=== PATIENT | male | born 1945 | race African-American/Black ===

== ENCOUNTER 2016-09-01 07:18 | Emergency (ER) | payer OTHER ==
[2016-09-01 07:35] VITALS: BMI 30.1
--- NOTE | 2016-09-01 07:50 | PDOC ---
History of Present Illness - General History Source: Patient, Old Records Exam Limitations: No Limitations - History of Present Illness Initial Comments: 09/01/16 08:03 The patient is a 70 year old male, with a significant past medical history of CVA, diabetes, HTN and HLD, who presents to the emergency department with hematuria and difficulty urinating since last night. He notes that his physician recently started him on Finasteride. He denies any kind of pain. He reports that this has happened to him in the past for which he needed a catheter placed to help him urinate. He states that he takes a daily baby aspirin. The patient denies chest pain, shortness of breath, headache and dizziness. Denies fever, chills, nausea, vomit, diarrhea and constipation. Denies dysuria and frequency. Allergies: None Past surgical history: None reported Social history: No alcohol, tobacco or drug use reported PMD - Dr. Jennifer Reed <Merrill Sal - Last Filed: 09/01/16 08:53> <Karo Martínez - Last Filed: 09/01/16 14:42> - General Chief Complaint: Hematuria Stated Complaint: hematuria Time Seen by Provider: 09/01/16 07:48 Past History <Merrill Sal - Last Filed: 09/01/16 08:53> - Past Medical History Diabetes: Yes HTN: Yes Hypercholesterolemia: Yes Suicide Attempt (Hx): No - Immunization History Td Vaccination: No - Psycho/Social/Smoking Cessation Hx Anxiety: No Suicidal Ideation: No Smoking Status: No Smoking History: Former smoker Have you smoked in the past 12 months: No Number of Cigarettes Smoked Daily: 0 If you are a former smoker, when did you quit?: 30 YRS AGO Information on smoking cessation initiated: No Hx Alcohol Use: No Drug/Substance Use Hx: No Substance Use Type: None <Karo Martínez - Last Filed: 09/01/16 14:42> - Past Medical History Allergies/Adverse Reactions: Allergies Allergy/AdvReac Type Severity Reaction Status Date / Time No Known Allergies Allergy Verified 09/01/16 07:30 Home Medications: Ambulatory Orders Atorvastatin Ca [Lipitor] 80 mg PO DAILY 12/05/12 Valsartan [Diovan] 80 mg PO DAILY 12/05/12 Aspirin [ASA -] 81 mg PO DAILY 10/30/15 Finasteride [Proscar -] 5 mg PO DAILY 09/01/16 Insulin (Levemir) [Levemir Flexpen -] 15 units SQ HS 09/01/16 Insulin Aspart [Novolog] 0 unit SQ TID 09/01/16 Tamsulosin HCl [Flomax] 0.4 mg PO DAILY 09/01/16 Review of Systems - Review of Systems Able to Perform ROS?: Yes Comments:: 09/01/16 08:04 GENERAL/CONSTITUTIONAL: No fever or chills. No weakness. HEAD, EYES, EARS, NOSE AND THROAT: No change in vision. No ear pain or discharge. No sore throat. CARDIOVASCULAR: No chest pain or shortness of breath RESPIRATORY: No cough, wheezing, or hemoptysis. GASTROINTESTINAL: No nausea, vomiting, diarrhea or constipation. GENITOURINARY: +Hematuria and Difficulty urinating. No dysuria, frequency MUSCULOSKELETAL: No joint or muscle swelling or pain. No neck or back pain. SKIN: No rash NEUROLOGIC: No headache, vertigo, loss of consciousness, or change in strength/ sensation. ENDOCRINE: No increased thirst. No abnormal weight change HEMATOLOGIC/LYMPHATIC: No anemia, easy bleeding, or history of blood clots. ALLERGIC/IMMUNOLOGIC: No hives or skin allergy. <Merrill Sal - Last Filed: 09/01/16 08:53> *Physical Exam - Vital Signs Last Vital Signs Temp Pulse Resp BP Pulse Ox 97.7 F 96 H 19 166/74 98 09/01/16 07:30 09/01/16 07:30 09/01/16 07:30 09/01/16 07:30 09/01/16 07:30 - Physical Exam Comments: 09/01/16 08:04 GENERAL: Awake, alert, and fully oriented, in no acute distress HEAD: No signs of trauma, normocephalic, atraumatic EYES: PERRLA, EOMI, sclera anicteric, conjunctiva clear ENT: Auricles normal inspection, hearing grossly normal, nares patent, oropharynx clear without exudates. Moist mucosa NECK: Normal ROM, supple, no lymphadenopathy, JVD, or masses LUNGS: No distress, speaks full sentences, clear to auscultation bilaterally HEART: Regular rate and rhythm, normal S1 and S2, no murmurs, rubs or gallops, peripheral pulses normal and equal bilaterally. ABDOMEN: Soft, nontender, normoactive bowel sounds. No guarding, no rebound. + Bladder distention. EXTREMITIES: Normal inspection, Normal range of motion, no edema. No clubbing or cyanosis. NEUROLOGICAL: Cranial nerves II through XII grossly intact. Normal speech, normal gait, no focal sensorimotor deficits SKIN: Warm, Dry, normal turgor, no rashes or lesions noted. <Merrill Sal - Last Filed: 09/01/16 08:53> - Vital Signs Last Vital Signs Temp Pulse Resp BP Pulse Ox 97.7 F 96 H 19 166/74 98 09/01/16 07:30 09/01/16 07:30 09/01/16 07:30 09/01/16 07:30 09/01/16 07:30 <Karo Martínez - Last Filed: 09/01/16 14:42> Medical Decision Making - Medical Decision Making Pt with approximately 400cc dark red urine in the pruett bag. Endorses relief of symptoms. He does not have a urologist, and was just started on proscar. Will place leg bag and refer to urology outpatient. <Karo Martínez - Last Filed: 09/01/16 14:42> *DC/Admit/Observation/Transfer - Attestations Scribe Attestion: 09/01/16 08:05 Documentation prepared by Merrill Sal, acting as medical coding specialist for Karo Martínez MD. <Merrill Sal - Last Filed: 09/01/16 08:53> - Discharge Dispostion Admit: No <Karo Martínez - Last Filed: 09/01/16 14:42> Diagnosis at time of Disposition: Urinary retention - Discharge Dispostion Disposition: HOME Condition at time of disposition: Stable - Referrals Referrals: Jennifer Reed MD [Primary Care Provider] - Javed Gross MD [Staff Physician] - - Patient Instructions Printed Discharge Instructions: DI for Hematuria
[2016-09-01 09:03] LABS: URINE APPEARANCE SLCLOUDY; URINE BILIRUBIN NEGATIVE (NEGATIVE); URINE COLOR RED; URINE GLUCOSE (UA) 1+ (NEGATIVE); URINE KETONE NEGATIVE (NEGATIVE); URINE LEUK ESTERASE NEGATIVE (NEGATIVE); URINE NITRITE NEGATIVE (NEGATIVE); URINE UROBILINOGEN NEGATIVE E.U./dl (0.2-1.0)
[2016-09-01 09:11] LABS: URINE BLOOD 2+ (NEGATIVE); URINE PROTEIN 2+ (NEGATIVE)
[2016-09-01 09:17] LABS: URINE RBC 5434 /hpf (0-3)
[2016-09-01 11:23] VITALS: BP 157/86; PULSE 87; TEMP 98
== END 2016-09-01 11:23 | disposition home or self-care (01) ==
LOC: JER 07:18
PROC: 0T9B70Z Drainage of Bladder with Drainage Device, Via Natural or Artificial Opening (ICD-10-PCS; principal; 2016-09-01)
DX: R33.8 Other retention of urine (principal); I10 Essential (primary) hypertension; E11.9 Type 2 diabetes mellitus without complications; Z79.4 Long term (current) use of insulin; E78.00 Pure hypercholesterolemia, unspecified; Z86.73 Personal history of transient ischemic attack (TIA), and cerebral infarction without residual deficits; Z87.891 Personal history of nicotine dependence
CPT/HCPCS: 51702; 81003; 81015; 87086; 99284-25

== ENCOUNTER 2016-09-06 23:37 | Emergency (ER) | payer OTHER ==
[2016-09-06 23:47] VITALS: TEMP 97.7; BMI 28.1
--- NOTE | 2016-09-07 01:31 | PDOC ---
History of Present Illness <LucaMarthacarrillo Kruger - Last Filed: 09/07/16 01:53> - General History Source: Patient, Old Records Exam Limitations: No Limitations - History of Present Illness Initial Comments: 09/07/16 01:53 The patient is a 70 year old male with a significant past medical history of CVA , diabetes, HTN and HLD, who presents to the emergency department today for further evaluation of pruett catheter complications since yesterday. The patient reports that last week he presented to this ER and was discharged with a pruett catheter. The patient reported that his urine bag is not filling up but that his bladder feels full. The patient notes that he has had some leakage when urinating that may be the reason the urine bag is not filling up. The patient denies fever, chills, and sweats. The patient denies nausea, vomiting, and diarrhea. The patient denies chest pain, cough, and shortness of breath. . <Kendall Underwood - Last Filed: 09/07/16 01:56> - General Chief Complaint: Urinary Catheter Problem Stated Complaint: URINARY CATHETER PROBLEM Time Seen by Provider: 09/07/16 00:05 Past History - Past Medical History Diabetes: Yes HTN: Yes Hypercholesterolemia: Yes Suicide Attempt (Hx): No Other medical history: kidney - Immunization History Td Vaccination: No - Psycho/Social/Smoking Cessation Hx Anxiety: No Suicidal Ideation: No Smoking Status: No Smoking History: Never smoked Have you smoked in the past 12 months: No Number of Cigarettes Smoked Daily: 0 If you are a former smoker, when did you quit?: 30 YRS AGO Information on smoking cessation initiated: No Hx Alcohol Use: No Drug/Substance Use Hx: No Substance Use Type: None <Martha Segovia - Last Filed: 09/07/16 01:53> <Kendall Underwood - Last Filed: 09/07/16 01:56> - Past Medical History Allergies/Adverse Reactions: Allergies Allergy/AdvReac Type Severity Reaction Status Date / Time No Known Allergies Allergy Verified 09/06/16 23:44 Home Medications: Ambulatory Orders Atorvastatin Ca [Lipitor] 80 mg PO DAILY 12/05/12 Valsartan [Diovan] 80 mg PO DAILY 12/05/12 Aspirin [ASA -] 81 mg PO DAILY 10/30/15 Finasteride [Proscar -] 5 mg PO DAILY 09/01/16 Insulin (Levemir) [Levemir Flexpen -] 15 units SQ HS 09/01/16 Insulin Aspart [Novolog] 0 unit SQ TID 09/01/16 Tamsulosin HCl [Flomax] 0.4 mg PO DAILY 09/01/16 Review of Systems - Review of Systems Able to Perform ROS?: Yes Comments:: 09/07/16 01:54 CONSTITUTIONAL: Absent: fever, no chills, no fatigue EYES: Absent: visual changes ENT: Absent: ear pain, no sore throat CARDIOVASCULAR: Absent: chest pain, no palpitations RESPIRATORY: Absent: cough, no SOB GI: Absent: abdominal pain, no nausea, no vomiting, no constipation, no diarrhea GENITOURINARY: Present: Dysuria Absent: no frequency, no hematuria MUSCULOSKELETAL: Absent: back pain, no arthralgia, no myalgia SKIN: Absent: rash NEURO: Absent: headache <Kendall Underwood - Last Filed: 09/07/16 01:56> *Physical Exam - Vital Signs Last Vital Signs Temp Pulse Resp BP Pulse Ox 97.7 F 92 H 14 167/70 99 09/06/16 23:44 09/06/16 23:44 09/06/16 23:44 09/06/16 23:44 09/06/16 23:44 <Martha Segovia - Last Filed: 09/07/16 01:53> - Vital Signs Last Vital Signs Temp Pulse Resp BP Pulse Ox 97.7 F 92 H 14 167/70 99 09/06/16 23:44 09/06/16 23:44 09/06/16 23:44 09/06/16 23:44 09/06/16 23:44 - Physical Exam Comments: 09/07/16 01:54 GENERAL: Well-appearing, well-nourished. No apparent distress. HEENT: Normocephalic, atraumatic. PERRL, EOM intact. CARDIOVASCULAR: Normal S1, S2. Regular rate and rhythm. PULMONARY: Clear to auscultation bilaterally. ABDOMEN: Soft, non-distended, non-tender. EXTREMITIES: Normal ROM in all four extremities. No gross deformities. SKIN: Warm, dry. No rash NEUROLOGICAL: No focal neurological deficits <Kendall Underwood - Last Filed: 09/07/16 01:56> *DC/Admit/Observation/Transfer <Martha Segovia - Last Filed: 09/07/16 01:53> - Attestations Scribe Attestion: 09/07/16 01:54 Documentation prepared by Kendall Underwood, acting as bilingual medical assistant for Martha Segovia MD. <Kendall Underwood - Last Filed: 09/07/16 01:56> Diagnosis at time of Disposition: Pruett catheter problem Qualifiers: Encounter type: initial encounter Qualified Code(s): T83.9XXA - Unspecified complication of genitourinary prosthetic device, implant and graft, initial encounter - Discharge Dispostion Disposition: HOME Condition at time of disposition: Stable - Referrals Referrals: Jennifer Reed MD [Primary Care Provider] - Henri Avila MD., [Staff Physician] - - Patient Instructions Printed Discharge Instructions: How to Care for Your Pruett Catheter -- Male Additional Instructions: please keep your appointment with your urology this week
[2016-09-07 02:12] VITALS: BP 124/79; PULSE 89
== END 2016-09-07 02:12 | disposition home or self-care (01) ==
LOC: JER 23:37
PROC: 0T2BX0Z Change Drainage Device in Bladder, External Approach (ICD-10-PCS; principal; 2016-09-06)
DX: T83.098A Other mechanical complication of other urinary catheter, initial encounter (principal); I10 Essential (primary) hypertension; E11.9 Type 2 diabetes mellitus without complications; Z79.4 Long term (current) use of insulin; E78.00 Pure hypercholesterolemia, unspecified; Z86.73 Personal history of transient ischemic attack (TIA), and cerebral infarction without residual deficits
CPT/HCPCS: 51702; 99282-25

== ENCOUNTER 2018-06-08 11:15 | Emergency (ER) | payer OTHER ==
[2018-06-08 11:26] VITALS: BP 163/73; PULSE 89; TEMP 98.1; BMI 31.1
--- NOTE | 2018-06-08 13:10 | PDOC ---
History of Present Illness - General Chief Complaint: Pain Stated Complaint: PCP SENT/RT TOE PAIN Time Seen by Provider: 06/08/18 12:58 - History of Present Illness Initial Comments: 06/08/18 13:05 72-year-old male with a past medical history significant for renal insufficiency and diabetes presents for evaluation of right great toe pain and redness. He states over the last 2 years he's stubbed his right great toe undeveloped infections. He stubbed his toe about a month ago and since that time his toe has become red and painful. Sent here by his primary care physician who was not in the office today he was placed on Augmentin last year for the same reason. Past History - Past Medical History Allergies/Adverse Reactions: Allergies Allergy/AdvReac Type Severity Reaction Status Date / Time No Known Allergies Allergy Verified 06/08/18 11:19 Home Medications: Ambulatory Orders Atorvastatin Ca [Lipitor] 80 mg PO DAILY 12/05/12 Valsartan [Diovan] 80 mg PO DAILY 12/05/12 Aspirin [ASA -] 81 mg PO DAILY 10/30/15 Finasteride [Proscar -] 5 mg PO DAILY 09/01/16 Insulin (Levemir) [Levemir Flexpen -] 15 units SQ HS 09/01/16 Insulin Aspart [Novolog] 0 unit SQ TID 09/01/16 Tamsulosin HCl [Flomax] 0.4 mg PO DAILY 09/01/16 Amoxicillin/Potassium Clav [Augmentin 500-125 Tablet] 1 each PO BID #20 tablet 06/08/18 COPD: No Diabetes: Yes HTN: Yes Hypercholesterolemia: Yes - Immunization History Td Vaccination: No - Suicide/Smoking/Psychosocial Hx Smoking Status: No Smoking History: Former smoker Have you smoked in the past 12 months: No Number of Cigarettes Smoked Daily: 0 If you are a former smoker, when did you quit?: 1985 Information on smoking cessation initiated: Yes Hx Alcohol Use: No Drug/Substance Use Hx: No Substance Use Type: None Review of Systems - Review of Systems Constitutional: No: Chills, Fever, Malaise, Night Sweats Musculoskeletal: Yes: See HPI, Joint Pain *Physical Exam - Vital Signs Last Vital Signs Temp Pulse Resp BP Pulse Ox 98.1 F 89 18 163/73 100 06/08/18 11:19 06/08/18 11:19 06/08/18 11:19 06/08/18 11:19 06/08/18 11:19 - Physical Exam Comments: 06/08/18 13:06 Right great toe is erythematous about the proximal and medial aspect of the skin overlying the distal phalanx. There is blanching erythema without warmth induration or sensitivity.There is tenderness about the medial aspect of the nail crease, there is no ingrown nail no sensory or motor deficits. NVID Medical Decision Making - Medical Decision Making 06/08/18 13:08 Based on the blanching erythema and history of diabetes I will put him on Augmentin and have him follow-up with his PCP *DC/Admit/Observation/Transfer Diagnosis at time of Disposition: Cellulitis of toe of right foot - Discharge Dispostion Disposition: HOME Condition at time of disposition: Stable Decision to Admit order: No - Prescriptions Prescriptions: Amoxicillin/Potassium Clav [Augmentin 500-125 Tablet] 1 each PO BID #20 tablet - Referrals Referrals: Jennifer Reed MD [Primary Care Provider] - - Patient Instructions Printed Discharge Instructions: Cellulitis, DI for Cellulitis -- Adult Additional Instructions: Please follow-up with your primary care physician in one to 2 days for further evaluation and treatment options. Take the antibiotics as directed and return to the emergency room should symptoms worsen or go unresolved. - Post Discharge Activity
== END 2018-06-08 13:14 | disposition home or self-care (01) ==
LOC: JERFT 11:15
DX: L03.031 Cellulitis of right toe (principal); E11.9 Type 2 diabetes mellitus without complications; I10 Essential (primary) hypertension; E78.00 Pure hypercholesterolemia, unspecified; Z87.891 Personal history of nicotine dependence
CPT/HCPCS: 36415; 80053; 85025; 87340; 99281-25

== ENCOUNTER 2018-07-15 11:58 | Day surgery (SDC) | payer OTHER ==
[2018-07-08 14:56] VITALS: BMI 30.4
[2018-07-15] MEDS ORDERED: PAPAVERINE HCL 30 MG/1 ML 10 ML VIAL NR ONE (16:09)
[2018-07-15] MEDS ORDERED: LIDOCAINE HCL 1%, 10 MG/ML (20ML VIAL) ONE (16:09)
[2018-07-15] MEDS ORDERED: MIDAZOLAM HCL 2 MG/2 ML SINGLE DOSE VIAL ONE (16:27)
--- NOTE | 2018-07-15 16:30 | HP ---
Satellite [facility] - Chief Complaint History of Present Illness: 72 year old man with chronic kidney disease who needs access for planned hemodialysis. He is right handed. History Source: Patient - Past Medical History Allergies/Adverse Reactions: Allergies Allergy/AdvReac Type Severity Reaction Status Date / Time No Known Allergies Allergy Verified 07/15/18 14:37 Cardiovascular: Yes: HTN, Hyperlipdemia Renal/: Yes: Renal Failure Endocrine: Yes: Diabetes Mellitus - Current Medications Current Medications: Home Medications Medication Instructions Recorded Atorvastatin Ca [Lipitor] 80 mg PO DAILY 12/05/12 Valsartan [Diovan] 80 mg PO DAILY 12/05/12 Aspirin [ASA -] 81 mg PO DAILY 10/30/15 Finasteride [Proscar -] 5 mg PO DAILY 09/01/16 Insulin (Levemir) [Levemir Flexpen 15 units SQ HS 09/01/16 -] Insulin Aspart [Novolog] 6 unit SQ TID 09/01/16 Tamsulosin HCl [Flomax] 0.4 mg PO DAILY 09/01/16 Sodium Polystyrene Sulfonate 453.6 gm PO DAILY 07/08/18 Satellite Physical Exam - Physical Examination Vital Signs: Vital Signs Period Temp Pulse Resp BP Sys/Hernandez Pulse Ox Last 24 Hr 97.3 F 80 18 178/77 98 General Appearance: Well Nourished ENT: Clear Lung: Clear to auscultation Heart: Regular rate & rhythm Abdomen: Soft, No tenderness Extremities: No edema Satellite Impression/Plan - Impression/Plan Impression: Chronic kidney disease Operative Procedure: Creation AV fistula Date to be Performed: 07/15/18
[2018-07-15] MEDS ORDERED: SODIUM CHLORIDE 1,000 ML IV SCH (17:15)
--- NOTE | 2018-07-15 17:31 | OP ---
Operative Note - Note: Operative Date: 07/15/18 Pre-Operative Diagnosis: Renal failure Operation: Creation AV fistula left arm Findings: Patent cephalic vein, radial artery Post-Operative Diagnosis: Same as Pre-op Surgeon: Juvencio Malhotra Anesthesiologist/FILLING OPERATOR: Henri Blanco Anesthesia: Fractional Estimated Blood Loss (mls): 20
[2018-07-15] MEDS ORDERED: ACETAMINOPHEN 325 MG TABLET (FP) PO PRN (17:45)
[2018-07-15] MEDS ORDERED: oxyCODONE HCL 5 MG TABLET PO PRN (17:45)
[2018-07-15 18:58] VITALS: TEMP 98
[2018-07-15 19:12] VITALS: BP 151/82; PULSE 68
--- NOTE | 2018-07-20 12:12 | OP ---
DATE OF OPERATION: 07/15/2018 SURGEON: Juvencio Malhotra MD PROCEDURE: Creation of arteriovenous fistula, left arm. PREOPERATIVE DIAGNOSIS: Renal failure. POSTOPERATIVE DIAGNOSIS: Renal failure. ANESTHESIA: Fractional. ANESTHESIOLOGIST: Henri Blanco MD OPERATIVE FINDINGS: The cephalic vein and radial artery were patent at the wrist. OPERATIVE PROCEDURE: Following routine patient identification with side and site verification, intravenous sedation was established. The left arm was prepped with ChloraPrep. A timeout was performed. Lidocaine 1% was infiltrated over the distal radial artery and cephalic vein proximal to the wrist. The vein was exposed through a short incision. Side branches ligated and divided. The vein was ligated distally. It was incised and distended with heparin and papaverine solution. Number 5 and 8 feeding tubes were passed proximally without resistance. The artery was then exposed through a short incision. The artery was encircled proximally and distally with vessel loops. Side branches were ligated and divided. The artery was occluded with the vessel loop and opened with a 4-mm arteriotomy. The vein was spatulated and anastomosed to the side of the artery. Prolene 6-0 sutures were used. Prior to completion, the artery was allowed to back-bleed and flush and the vein was flushed with a heparin solution. The suture line was then completed and the vessels were released. There was good flow through the anastomosis with a palpable thrill proximally. Hemostasis was achieved with Surgicel. The wounds were then closed with interrupted suture of 3-0 Vicryl and skin micheal. Sterile dressings were applied and the patient was taken to the recovery room in stable condition. Nadine CARDONA/[id number]
== END 2018-07-15 18:50 | disposition home or self-care (01) ==
LOC: JASU-SURG 11:58
PROVIDERS: ATTEND Surgery
PROC: 031C0ZF Bypass Left Radial Artery to Lower Arm Vein, Open Approach (ICD-10-PCS; principal; 2018-07-15 14:00)
DX: I12.0 Hypertensive chronic kidney disease with stage 5 chronic kidney disease or end stage renal disease (principal); E11.22 Type 2 diabetes mellitus with diabetic chronic kidney disease; N18.6 End stage renal disease; Z79.4 Long term (current) use of insulin
CPT/HCPCS: 82962; 94760

== ENCOUNTER 2019-10-16 11:31 | Emergency (ER) | payer OTHER ==
[2019-10-16 11:42] VITALS: BP 175/68; PULSE 94; TEMP 97.8; BMI 28.1
--- NOTE | 2019-10-16 14:08 | PDOC ---
History of Present Illness - General Chief Complaint: Injury Stated Complaint: RT FOOT INJURY Time Seen by Provider: 10/16/19 11:44 - History of Present Illness Initial Comments: 10/16/19 15:10 73-year-old male complains of right foot Redness x1 month without systemic symptoms. He complains of redness about the dorsum of the great toe.History of vascular disease had a prior stroke in the past Past History - Past Medical History Allergies/Adverse Reactions: Allergies Allergy/AdvReac Type Severity Reaction Status Date / Time No Known Allergies Allergy Verified 10/16/19 11:33 Home Medications: Ambulatory Orders Atorvastatin Ca [Lipitor] 80 mg PO DAILY 12/05/12 Valsartan [Diovan] 80 mg PO DAILY 12/05/12 Aspirin [ASA -] 81 mg PO DAILY 10/30/15 Finasteride [Proscar -] 5 mg PO DAILY 09/01/16 Insulin (Levemir) [Levemir Flexpen -] 15 units SQ HS 09/01/16 Insulin Aspart [Novolog] 6 unit SQ TID 09/01/16 Tamsulosin HCl [Flomax] 0.4 mg PO DAILY 09/01/16 Sodium Polystyrene Sulfonate 453.6 gm PO DAILY 07/08/18 Anemia: No Asthma: No Cancer: No Cardiac Disorders: No CVA: No COPD: No CHF: No Dementia: No Diabetes: Yes GI Disorders: No Disorders: Yes (KIDNEY STONES MANY YEARS AGO) HTN: Yes Hypercholesterolemia: Yes Liver Disease: No Seizures: No Thyroid Disease: No - Surgical History Abdominal Surgery: No Appendectomy: No Cardiac Surgery: No Cholecystectomy: No Lung Surgery: No Neurologic Surgery: No Orthopedic Surgery: No - Immunization History Td Vaccination: No - Psycho Social/Smoking Cessation Hx Smoking Status: No Smoking History: Never smoked Have you smoked in the past 12 months: No Number of Cigarettes Smoked Daily: 0 If you are a former smoker, when did you quit?: 1985 Hx Alcohol Use: No Drug/Substance Use Hx: No Substance Use Type: None Hx Substance Use Treatment: No Review of Systems - Review of Systems Integumentary: Yes: Erythema *Physical Exam - Vital Signs Last Vital Signs Temp Pulse Resp BP Pulse Ox 97.8 F 94 H 18 175/68 H 100 10/16/19 11:33 10/16/19 11:33 10/16/19 11:33 10/16/19 11:33 10/16/19 11:33 - Physical Exam 10/16/19 15:11 There is mild dusky erythema at the dorsum of the right great toe. Poor capillary refill thready dorsal pedal and posterior tibial pulse foot is otherwise warm. ED Treatment Course - RADIOLOGY Radiology Studies Ordered: Category Date Time Status DUPLEX ART. LOWER COMPL US [US] Stat Ultrasound 10/16/19 12:11 Completed Medical Decision Making - Medical Decision Making 10/16/19 14:02 Awaiting call back from Dr Mg from vascular surgery 10/16/19 14:20 Second message left 10/16/19 15:12 After multiple attempts at vascular surgery consultation ultrasound was reviewed with attending this patient is safe to go home as an outpatient follow-up with close follow-up with vascular surgery with strict instructions to return to the emergency room should symptoms worsen. 10/16/19 15:13 I have reviewed the pathophysiology with the patient. They are in agreement with the treatment plan all questions were answered to their satisfaction. Understanding for follow-up without fail was also conveyed to the patient. Again they are in agreement. Discharge - Discharge Information Problems reviewed: Yes Clinical Impression/Diagnosis: Arterial insufficiency of lower extremity Condition: Stable Disposition: HOME - Admission No - Follow up/Referral Referrals: Fredy Benton MD [Primary Care Provider] - Brian Mg MD [Non Staff, Medical] - Nacho Mg MD [Non Staff, Medical] - - Patient Discharge Instructions Additional Instructions: Continue your regular medication as directed and without fail follow-up with vascular surgery in 2 to 3 days for further evaluation and treatment options. Return to the emergency room should symptoms worsen. - Post Discharge Activity
== END 2019-10-16 15:20 | disposition home or self-care (01) ==
LOC: JERFT 11:31
DX: I70.211 Atherosclerosis of native arteries of extremities with intermittent claudication, right leg (principal)
CPT/HCPCS: 93925-TC; 99284-25

== ENCOUNTER 2020-04-05 12:14 | Inpatient (IN) | payer OTHER ==
[2020-04-05 12:26] VITALS: BMI 28.1
[2020-04-05 15:24] LABS: BASO % 0.5 % (0-2.0); EOS % 0.4 % (0-4.5); HEMOGLOBIN 8.5 GM/dL (11.7-16.9); LYMPH % 13.2 % (8-40); MCH 30.5 pg (25.7-33.7); MCHC 32.8 g/dl (32.0-35.9); MEAN CELL VOLUME 93.1 fl (80-96); MEAN PLT VOLUME 7.3 fl (7.5-11.1); MONO % 6.7 % (3.8-10.2); NEUT % 79.2 % (42.8-82.8); PLATELET COUNT 458 K/MM3 (134-434); RDW 15.9 % (11.9-15.9); WHITE BLOOD COUNT 10.6 K/mm3 (4.0-10.0)
[2020-04-05 15:32] LABS: INR 1.37 (0.83-1.09); PROTHROMBIN TIME (PATIENT) 16.2 SEC (9.7-13.0)
[2020-04-05 15:34] LABS: ACTIVATED PTT 39.3 SECONDS (25.2-36.5)
[2020-04-05 15:51] LABS: ALBUMIN 2.6 g/dl (3.4-5.0); BILIRUBIN,TOTAL 0.4 mg/dL (0.2-1); BLOOD UREA NITROGEN 75.7 mg/dL (7-18); CREATININE 6.9 mg/dL (0.55-1.3); POTASSIUM 4.6 mmol/L (3.5-5.1); TOT PROT 6.9 g/dl (6.4-8.2)
[2020-04-05] MEDS ORDERED: VANCOMYCIN 1 GM in D5W (PRE-DOCKED) 1,000 MG/250 ML IVPB ONE (17:28)
[2020-04-05] MEDS ORDERED: PIPERACILLIN/TAZOB 2.25 GM 2.25 GM in DEXTROSE 5%-WATER - 50 ML IVPB ONE (17:28)
[2020-04-05] MEDS ORDERED: PIPERACILLIN/TAZOB 2.25 GM 2.25 GM/50 ML BAG IVPB ONE (19:07)
[2020-04-05] MEDS ORDERED: VANCOMYCIN 1 GRAM (PRE-DOCKED) 1,000 MG/250 ML BAG IVPB ONE (19:53)
[2020-04-06] MEDS ORDERED: PT OWN MED DRAWER 7, Y5N ONE ×2 (10:01→11:04)
[2020-04-06] MEDS: ASPIRIN COATED 81 MG TABLET.EC PO SCH (10:23)
[2020-04-06] MEDS: APIXABAN 5 MG TABLET PO SCH ×2 (10:23→21:02)
[2020-04-06] MEDS: FINASTERIDE 5 MG TABLET (FP) PO SCH (10:23)
[2020-04-06] MEDS ORDERED: PIPERACILLIN/TAZOBACTAM 2.25 GM VIAL IVPB ONE ×2 (11:45→17:40)
[2020-04-06] MEDS ORDERED: INSULIN (NOVOLOG) ASPART 100 UNITS/ML 10ML VIAL ONE ×3 (11:45→21:00)
[2020-04-06] MEDS ORDERED: DEXTROSE 5%-WATER - 50 ML IVPB ONE ×2 (11:46→17:40)
[2020-04-06] MEDS: INSULIN SLIDING SCALE (NOVOLOG) 1 VIAL SQ SCH ×3 (11:49→21:02)
[2020-04-06] MEDS: NEBIVOLOL 10 MG TABLET (FP) PO SCH (11:51)
[2020-04-06] MEDS: PIPERACILLIN/TAZOB 2.25 GM 2.25 GM in DEXTROSE 5%-WATER - 50 ML IVPB SCH ×2 (11:51→17:44)
[2020-04-06] MEDS: CALCIUM ACETATE 667 MG CAPSULE (FP) PO SCH ×2 (11:52→17:44)
[2020-04-06] MEDS ORDERED: SODIUM CHLORIDE 250 ML IV PRN (12:07)
[2020-04-06] MEDS ORDERED: EPOETIN ALFA-EPBX 4,000 UNIT/ML VIAL IVPUSH ONE (15:00)
[2020-04-06 16:02] LABS: HEMATOCRIT 24.5 % (35.4-49); MCH 30.3 pg (25.7-33.7); MCHC 32.7 g/dl (32.0-35.9); MEAN CELL VOLUME 92.9 fl (80-96); MEAN PLT VOLUME 8.3 fl (7.5-11.1); PLATELET COUNT 274 K/MM3 (134-434); RBC 2.64 M/mm3 (4.00-5.60); RDW 15.9 % (11.9-15.9)
[2020-04-06 16:09] LABS: BLOOD UREA NITROGEN 90.8 mg/dL (7-18); CALCIUM 8.4 mg/dL (8.5-10.1)
[2020-04-06 16:42] LABS: CREATININE 7.5 mg/dL (0.55-1.3); POTASSIUM 2.7 mmol/L (3.5-5.1)
[2020-04-06 18:15] LABS: CALCIUM 8.9 mg/dL (8.5-10.1); CREATININE 2.3 mg/dL (0.55-1.3); POTASSIUM 3.2 mmol/L (3.5-5.1)
[2020-04-06] MEDS ORDERED: POTASSIUM CHLORIDE TABS 20 MEQ TABLET.ER (FP) PO ONE (18:20)
[2020-04-06] MEDS: ACETAMINOPHEN 325 MG TABLET (FP) PO PRN (18:50)
[2020-04-06] MEDS: ATORVASTATIN CA 80 MG TABLET (FP) PO SCH (21:02)
[2020-04-07] MEDS ORDERED: PIPERACILLIN/TAZOBACTAM 2.25 GM VIAL IVPB ONE ×3 (01:38→17:56)
[2020-04-07] MEDS ORDERED: DEXTROSE 5%-WATER - 50 ML IVPB ONE ×3 (01:38→17:56)
[2020-04-07] MEDS: PIPERACILLIN/TAZOB 2.25 GM 2.25 GM in DEXTROSE 5%-WATER - 50 ML IVPB SCH ×3 (01:59→18:03)
[2020-04-07] MEDS: INSULIN SLIDING SCALE (NOVOLOG) 1 VIAL SQ SCH ×4 (06:17→21:40)
[2020-04-07] MEDS: TAMSULOSIN HCL 0.4 MG CAP PO SCH (08:52)
[2020-04-07] MEDS: CALCIUM ACETATE 667 MG CAPSULE (FP) PO SCH ×3 (08:52→17:55)
[2020-04-07 08:54] LABS: POTASSIUM 3.6 mmol/L (3.5-5.1)
[2020-04-07 09:03] LABS: ALBUMIN 2.2 g/dl (3.4-5.0); BILIRUBIN,TOTAL 0.7 mg/dL (0.2-1); BLOOD UREA NITROGEN 42.9 mg/dL (7-18); CALCIUM 8.6 mg/dL (8.5-10.1); CREATININE 5.1 mg/dL (0.55-1.3); MAGNESIUM 1.9 mg/dL (1.8-2.4); TOT PROT 6.9 g/dl (6.4-8.2)
[2020-04-07] MEDS: APIXABAN 5 MG TABLET PO SCH ×2 (09:25→21:41)
[2020-04-07] MEDS: ASPIRIN COATED 81 MG TABLET.EC PO SCH (09:25)
[2020-04-07] MEDS: FINASTERIDE 5 MG TABLET (FP) PO SCH (09:25)
[2020-04-07] MEDS: NEBIVOLOL 10 MG TABLET (FP) PO SCH (09:28)
[2020-04-07] MEDS ORDERED: SODIUM CHLORIDE 250 ML IV PRN (13:45)
[2020-04-07] MEDS: AMINO ACIDS/PROTEIN HYDROLYS 30 ML LIQUID.PKT PO SCH (17:55)
[2020-04-07] MEDS: ATORVASTATIN CA 80 MG TABLET (FP) PO SCH (21:41)
[2020-04-08] MEDS ORDERED: DEXTROSE 5%-WATER - 50 ML IVPB ONE ×3 (01:06→17:11)
[2020-04-08] MEDS ORDERED: PIPERACILLIN/TAZOBACTAM 2.25 GM VIAL IVPB ONE ×3 (01:06→17:11)
[2020-04-08] MEDS: PIPERACILLIN/TAZOB 2.25 GM 2.25 GM in DEXTROSE 5%-WATER - 50 ML IVPB SCH ×3 (01:14→17:15)
[2020-04-08] MEDS: INSULIN SLIDING SCALE (NOVOLOG) 1 VIAL SQ SCH ×4 (06:15→21:46)
[2020-04-08 07:33] LABS: HEMATOCRIT 25.2 % (35.4-49); HEMOGLOBIN 7.9 GM/dL (11.7-16.9); MCH 29.6 pg (25.7-33.7); MCHC 31.4 g/dl (32.0-35.9); MEAN CELL VOLUME 94.1 fl (80-96); MEAN PLT VOLUME 7.8 fl (7.5-11.1); PLATELET COUNT 381 K/MM3 (134-434); RBC 2.68 M/mm3 (4.00-5.60); RDW 16.2 % (11.9-15.9); WHITE BLOOD COUNT 9.1 K/mm3 (4.0-10.0)
[2020-04-08 08:04] LABS: POTASSIUM 3.9 mmol/L (3.5-5.1)
[2020-04-08 08:28] LABS: BLOOD UREA NITROGEN 55.1 mg/dL (7-18); CALCIUM 8.5 mg/dL (8.5-10.1); CREATININE 6.3 mg/dL (0.55-1.3)
[2020-04-08] MEDS ORDERED: PT OWN MED DRAWER 7, Y5N ONE (09:03)
[2020-04-08] MEDS: FINASTERIDE 5 MG TABLET (FP) PO SCH (09:05)
[2020-04-08] MEDS: APIXABAN 5 MG TABLET PO SCH (09:05)
[2020-04-08] MEDS: ASPIRIN COATED 81 MG TABLET.EC PO SCH (09:05)
[2020-04-08] MEDS: AMINO ACIDS/PROTEIN HYDROLYS 30 ML LIQUID.PKT PO SCH ×2 (09:05→17:15)
[2020-04-08] MEDS: TAMSULOSIN HCL 0.4 MG CAP PO SCH (09:05)
[2020-04-08] MEDS: NEBIVOLOL 10 MG TABLET (FP) PO SCH (09:05)
[2020-04-08] MEDS: CALCIUM ACETATE 667 MG CAPSULE (FP) PO SCH ×3 (09:05→17:15)
[2020-04-08] MEDS ORDERED: EPOETIN ALFA-EPBX 4,000 UNIT/ML VIAL IVPUSH ONE (11:15)
[2020-04-08] MEDS ORDERED: INSULIN (NOVOLOG) ASPART 100 UNITS/ML 10ML VIAL ONE (11:16)
[2020-04-08] MEDS ORDERED: VANCOMYCIN 1 GRAM (PRE-DOCKED) 1,000 MG/250 ML BAG IVPB SCH (15:00)
[2020-04-08] MEDS: ACETAMINOPHEN 325 MG TABLET (FP) PO PRN (15:33)
[2020-04-08] MEDS: ATORVASTATIN CA 80 MG TABLET (FP) PO SCH (21:45)
[2020-04-09] MEDS ORDERED: DEXTROSE 5%-WATER - 50 ML IVPB ONE ×3 (00:55→17:25)
[2020-04-09] MEDS ORDERED: PIPERACILLIN/TAZOBACTAM 2.25 GM VIAL IVPB ONE ×3 (00:55→17:25)
[2020-04-09] MEDS: PIPERACILLIN/TAZOB 2.25 GM 2.25 GM in DEXTROSE 5%-WATER - 50 ML IVPB SCH ×3 (01:26→17:29)
[2020-04-09] MEDS: INSULIN SLIDING SCALE (NOVOLOG) 1 VIAL SQ SCH ×4 (06:21→22:15)
[2020-04-09] MEDS: CALCIUM ACETATE 667 MG CAPSULE (FP) PO SCH ×3 (08:48→17:29)
[2020-04-09] MEDS: TAMSULOSIN HCL 0.4 MG CAP PO SCH (08:49)
[2020-04-09] MEDS: AMINO ACIDS/PROTEIN HYDROLYS 30 ML LIQUID.PKT PO SCH ×2 (08:49→17:29)
[2020-04-09] MEDS ORDERED: PT OWN MED DRAWER 7, Y5N ONE ×3 (09:34→22:42)
[2020-04-09] MEDS: NEBIVOLOL 10 MG TABLET (FP) PO SCH (09:37)
[2020-04-09] MEDS: FINASTERIDE 5 MG TABLET (FP) PO SCH (09:37)
[2020-04-09] MEDS: ACETAMINOPHEN 325 MG TABLET (FP) PO PRN (17:27)
[2020-04-09] MEDS: ATORVASTATIN CA 80 MG TABLET (FP) PO SCH (21:54)
[2020-04-10] MEDS ORDERED: PIPERACILLIN/TAZOBACTAM 2.25 GM VIAL IVPB ONE ×3 (01:00→17:16)
[2020-04-10] MEDS ORDERED: DEXTROSE 5%-WATER - 50 ML IVPB ONE ×3 (01:00→17:16)
[2020-04-10] MEDS: PIPERACILLIN/TAZOB 2.25 GM 2.25 GM in DEXTROSE 5%-WATER - 50 ML IVPB SCH ×3 (01:20→17:19)
[2020-04-10] MEDS: INSULIN SLIDING SCALE (NOVOLOG) 1 VIAL SQ SCH ×4 (06:02→21:56)
[2020-04-10] MEDS ORDERED: SODIUM CHLORIDE 250 ML IV PRN (07:03)
[2020-04-10] MEDS ORDERED: EPOETIN ALFA 20,000 UNIT/1 ML VIAL IVPUSH ONE (08:00)
[2020-04-10] MEDS: AMINO ACIDS/PROTEIN HYDROLYS 30 ML LIQUID.PKT PO SCH ×4 (08:00→17:20)
[2020-04-10 08:02] LABS: HEMATOCRIT 24.8 % (35.4-49); HEMOGLOBIN 7.9 GM/dL (11.7-16.9); MCH 29.9 pg (25.7-33.7); MCHC 31.8 g/dl (32.0-35.9); MEAN CELL VOLUME 94.1 fl (80-96); MEAN PLT VOLUME 7.8 fl (7.5-11.1); PLATELET COUNT 337 K/MM3 (134-434); RBC 2.64 M/mm3 (4.00-5.60); RDW 16.4 % (11.9-15.9); WHITE BLOOD COUNT 7.9 K/mm3 (4.0-10.0)
[2020-04-10] MEDS: CALCIUM ACETATE 667 MG CAPSULE (FP) PO SCH ×4 (08:02→17:19)
[2020-04-10 08:39] LABS: POTASSIUM 3.5 mmol/L (3.5-5.1)
[2020-04-10 08:57] LABS: CALCIUM 8.3 mg/dL (8.5-10.1); CREATININE 5.5 mg/dL (0.55-1.3); PHOSPHOROUS 3.2 mg/dL (2.5-4.9)
[2020-04-10] MEDS ORDERED: PT OWN MED DRAWER 7, Y5N ONE (10:21)
[2020-04-10] MEDS: FINASTERIDE 5 MG TABLET (FP) PO SCH (10:23)
[2020-04-10] MEDS: NEBIVOLOL 10 MG TABLET (FP) PO SCH (10:23)
[2020-04-10] MEDS: TAMSULOSIN HCL 0.4 MG CAP PO SCH (10:26)
[2020-04-10] MEDS: ACETAMINOPHEN 325 MG TABLET (FP) PO PRN ×2 (11:36→22:48)
[2020-04-10] MEDS ORDERED: PANTOPRAZOLE 40 MG TABLET PO ONE (18:30)
[2020-04-10] MEDS: ATORVASTATIN CA 80 MG TABLET (FP) PO SCH (21:56)
[2020-04-10 22:17] LABS: INR 1.17 (0.83-1.09); PROTHROMBIN TIME (PATIENT) 13.8 SEC (9.7-13.0)
[2020-04-11] MEDS ORDERED: DEXTROSE 5%-WATER - 50 ML IVPB ONE ×3 (01:30→17:19)
[2020-04-11] MEDS ORDERED: PIPERACILLIN/TAZOBACTAM 2.25 GM VIAL IVPB ONE ×3 (01:30→17:18)
[2020-04-11] MEDS: PIPERACILLIN/TAZOB 2.25 GM 2.25 GM in DEXTROSE 5%-WATER - 50 ML IVPB SCH ×3 (01:51→17:25)
[2020-04-11] MEDS: INSULIN SLIDING SCALE (NOVOLOG) 1 VIAL SQ SCH ×4 (06:13→21:21)
[2020-04-11] MEDS ORDERED: LIDOCAINE HCL 1%, 10 MG/ML (20ML VIAL) ONE (07:07)
[2020-04-11] MEDS ORDERED: PROPOFOL 20 ML ONE ×2 (07:20)
[2020-04-11] MEDS ORDERED: MIDAZOLAM HCL 2 MG/2 ML SINGLE DOSE VIAL ONE (07:20)
[2020-04-11] MEDS ORDERED: INSULIN (NOVOLOG) ASPART 100 UNITS/ML 10ML VIAL ONE ×2 (07:57→11:12)
[2020-04-11] MEDS ORDERED: LIDOCAINE HCL 1%, 10 MG/ML (20ML VIAL) NR ONE (08:13)
[2020-04-11] MEDS ORDERED: BUPIVACAINE HCL/PF 0.5% (5MG/ML) 10 ML VIAL IJ ONE (08:13)
[2020-04-11] MEDS: TAMSULOSIN HCL 0.4 MG CAP PO SCH (08:31)
[2020-04-11] MEDS: CALCIUM ACETATE 667 MG CAPSULE (FP) PO SCH ×3 (08:31→17:25)
[2020-04-11] MEDS ORDERED: BACITRACIN 50,000 UNITS VIAL TP ONE (08:31)
[2020-04-11] MEDS: AMINO ACIDS/PROTEIN HYDROLYS 30 ML LIQUID.PKT PO SCH ×2 (08:32→17:25)
[2020-04-11 09:49] LABS: BASO % 0.7 % (0-2.0); EOS % 2.3 % (0-4.5); HEMATOCRIT 28.2 % (35.4-49); HEMOGLOBIN 8.8 GM/dL (11.7-16.9); LYMPH % 18.5 % (8-40); MCH 29.9 pg (25.7-33.7); MCHC 31.1 g/dl (32.0-35.9); MEAN CELL VOLUME 96.3 fl (80-96); MEAN PLT VOLUME 7.3 fl (7.5-11.1); MONO % 6.6 % (3.8-10.2); NEUT % 71.9 % (42.8-82.8); PLATELET COUNT 348 K/MM3 (134-434); RBC 2.93 M/mm3 (4.00-5.60); RDW 17.4 % (11.9-15.9); WHITE BLOOD COUNT 8.4 K/mm3 (4.0-10.0)
[2020-04-11] MEDS ORDERED: PT OWN MED DRAWER 7, Y5N ONE (10:34)
[2020-04-11] MEDS: NEBIVOLOL 10 MG TABLET (FP) PO SCH (10:38)
[2020-04-11] MEDS: FINASTERIDE 5 MG TABLET (FP) PO SCH (10:38)
[2020-04-11] MEDS: ACETAMINOPHEN 325 MG TABLET (FP) PO PRN ×3 (10:49→22:41)
[2020-04-11] MEDS ORDERED: ONDANSETRON 4 MG/2 ML VIAL IVPUSH PRN (11:44)
[2020-04-11] MEDS ORDERED: SODIUM CHLORIDE 250 ML IV PRN (14:56)
[2020-04-11] MEDS: MORPHINE SULFATE 2 MG/ML VIAL IM PRN (15:59)
[2020-04-11] MEDS: DOXYCYCLINE HYCLATE 100 MG CAPSULE PO SCH (20:19)
[2020-04-11] MEDS: GABAPENTIN 100 MG CAPSULE PO SCH (21:20)
[2020-04-11] MEDS: ATORVASTATIN CA 80 MG TABLET (FP) PO SCH (21:20)
[2020-04-11] MEDS ORDERED: INSULIN (LEVEMIR) 100 UNITS/ML UNITS SQ SCH (22:00)
[2020-04-12] MEDS ORDERED: PIPERACILLIN/TAZOBACTAM 2.25 GM VIAL IVPB ONE ×3 (02:31→16:34)
[2020-04-12] MEDS ORDERED: DEXTROSE 5%-WATER - 50 ML IVPB ONE ×3 (02:32→16:34)
[2020-04-12] MEDS: PIPERACILLIN/TAZOB 2.25 GM 2.25 GM in DEXTROSE 5%-WATER - 50 ML IVPB SCH ×3 (02:37→17:12)
[2020-04-12] MEDS: INSULIN SLIDING SCALE (NOVOLOG) 1 VIAL SQ SCH ×4 (06:18→21:02)
[2020-04-12] MEDS ORDERED: EPOETIN ALFA 20,000 UNIT/1 ML VIAL IVPUSH ONE (09:15)
[2020-04-12] MEDS: CALCIUM ACETATE 667 MG CAPSULE (FP) PO SCH ×3 (10:21→17:13)
[2020-04-12] MEDS: AMINO ACIDS/PROTEIN HYDROLYS 30 ML LIQUID.PKT PO SCH ×2 (10:21→17:13)
[2020-04-12] MEDS: TAMSULOSIN HCL 0.4 MG CAP PO SCH (10:21)
[2020-04-12 10:52] LABS: HEMATOCRIT 26.6 % (35.4-49); HEMOGLOBIN 8.4 GM/dL (11.7-16.9); MCH 30.2 pg (25.7-33.7); MCHC 31.8 g/dl (32.0-35.9); MEAN CELL VOLUME 95.1 fl (80-96); MEAN PLT VOLUME 8.3 fl (7.5-11.1); PLATELET COUNT 250 K/MM3 (134-434); RDW 17.1 % (11.9-15.9); WHITE BLOOD COUNT 10.7 K/mm3 (4.0-10.0)
[2020-04-12 11:25] LABS: BLOOD UREA NITROGEN 46.7 mg/dL (7-18); CALCIUM 8.3 mg/dL (8.5-10.1); CREATININE 6.2 mg/dL (0.55-1.3); PHOSPHOROUS 3.2 mg/dL (2.5-4.9); POTASSIUM 3.3 mmol/L (3.5-5.1)
[2020-04-12] MEDS: FINASTERIDE 5 MG TABLET (FP) PO SCH (12:00)
[2020-04-12] MEDS: NEBIVOLOL 10 MG TABLET (FP) PO SCH (12:00)
[2020-04-12] MEDS: DOXYCYCLINE HYCLATE 100 MG CAPSULE PO SCH ×2 (12:00→18:40)
[2020-04-12] MEDS: MORPHINE SULFATE 2 MG/ML VIAL IM PRN (12:30)
[2020-04-12] MEDS ORDERED: LACTATED RINGERS SOLUTION 1,000 ML IV SCH (14:00)
[2020-04-12] MEDS ORDERED: INSULIN (NOVOLOG) ASPART 100 UNITS/ML 10ML VIAL ONE (20:27)
[2020-04-12] MEDS: INSULIN (LEVEMIR) 100 UNITS/ML UNITS SQ SCH (21:01)
[2020-04-12] MEDS: GABAPENTIN 100 MG CAPSULE PO SCH (21:02)
[2020-04-12] MEDS: ATORVASTATIN CA 80 MG TABLET (FP) PO SCH (21:02)
[2020-04-13] MEDS ORDERED: DEXTROSE 5%-WATER - 50 ML IVPB ONE ×3 (01:11→17:09)
[2020-04-13] MEDS ORDERED: PIPERACILLIN/TAZOBACTAM 2.25 GM VIAL IVPB ONE ×3 (01:11→17:09)
[2020-04-13] MEDS: PIPERACILLIN/TAZOB 2.25 GM 2.25 GM in DEXTROSE 5%-WATER - 50 ML IVPB SCH ×3 (01:30→17:20)
[2020-04-13] MEDS: INSULIN SLIDING SCALE (NOVOLOG) 1 VIAL SQ SCH ×4 (06:20→22:19)
[2020-04-13] MEDS ORDERED: PT OWN MED DRAWER 7, Y5N ONE (09:25)
[2020-04-13] MEDS: NEBIVOLOL 10 MG TABLET (FP) PO SCH (09:31)
[2020-04-13] MEDS: DOXYCYCLINE HYCLATE 100 MG CAPSULE PO SCH ×2 (09:31→18:55)
[2020-04-13] MEDS: TAMSULOSIN HCL 0.4 MG CAP PO SCH (09:31)
[2020-04-13] MEDS: CALCIUM ACETATE 667 MG CAPSULE (FP) PO SCH ×3 (09:31→17:20)
[2020-04-13] MEDS: AMINO ACIDS/PROTEIN HYDROLYS 30 ML LIQUID.PKT PO SCH ×2 (09:31→17:20)
[2020-04-13] MEDS: FINASTERIDE 5 MG TABLET (FP) PO SCH (09:31)
[2020-04-13] MEDS: oxyCODONE HCL 5 MG TABLET PO PRN ×2 (12:20→22:17)
[2020-04-13 12:36] LABS: BASO % 0.4 % (0-2.0); EOS % 2.4 % (0-4.5); HEMATOCRIT 28.9 % (35.4-49); HEMOGLOBIN 9.4 GM/dL (11.7-16.9); LYMPH % 13.8 % (8-40); MCH 30.9 pg (25.7-33.7); MCHC 32.4 g/dl (32.0-35.9); MEAN CELL VOLUME 95.5 fl (80-96); MEAN PLT VOLUME 8.4 fl (7.5-11.1); MONO % 5.6 % (3.8-10.2); NEUT % 77.8 % (42.8-82.8); PLATELET COUNT 274 K/MM3 (134-434); RBC 3.03 M/mm3 (4.00-5.60); RDW 17.3 % (11.9-15.9); WHITE BLOOD COUNT 10.5 K/mm3 (4.0-10.0)
[2020-04-13] MEDS: VITAMIN B COMPLEX W/C COMBO TABLET (FP) PO SCH (15:12)
[2020-04-13] MEDS: INSULIN (LEVEMIR) 100 UNITS/ML UNITS SQ SCH (22:15)
[2020-04-13] MEDS: ATORVASTATIN CA 80 MG TABLET (FP) PO SCH (22:17)
[2020-04-13] MEDS: ACETAMINOPHEN 325 MG TABLET (FP) PO PRN (22:18)
[2020-04-13] MEDS: GABAPENTIN 100 MG CAPSULE PO SCH (22:19)
[2020-04-14] MEDS ORDERED: PIPERACILLIN/TAZOBACTAM 2.25 GM VIAL IVPB ONE ×3 (02:08→18:36)
[2020-04-14] MEDS ORDERED: DEXTROSE 5%-WATER - 50 ML IVPB ONE ×3 (02:09→18:36)
[2020-04-14] MEDS: PIPERACILLIN/TAZOB 2.25 GM 2.25 GM in DEXTROSE 5%-WATER - 50 ML IVPB SCH ×3 (02:25→18:40)
[2020-04-14] MEDS: INSULIN SLIDING SCALE (NOVOLOG) 1 VIAL SQ SCH ×4 (06:40→21:19)
[2020-04-14] MEDS ORDERED: INSULIN (LEVEMIR) 100 UNITS/ML UNITS SQ ONE (07:29)
[2020-04-14] MEDS ORDERED: PT OWN MED DRAWER 7, Y5N ONE (09:32)
[2020-04-14] MEDS: CALCIUM ACETATE 667 MG CAPSULE (FP) PO SCH ×3 (09:34→16:53)
[2020-04-14] MEDS: VITAMIN B COMPLEX W/C COMBO TABLET (FP) PO SCH (09:34)
[2020-04-14] MEDS: AMINO ACIDS/PROTEIN HYDROLYS 30 ML LIQUID.PKT PO SCH ×2 (09:34→16:53)
[2020-04-14] MEDS: DOXYCYCLINE HYCLATE 100 MG CAPSULE PO SCH ×2 (09:35→18:40)
[2020-04-14] MEDS: TAMSULOSIN HCL 0.4 MG CAP PO SCH (09:35)
[2020-04-14] MEDS: FINASTERIDE 5 MG TABLET (FP) PO SCH (09:35)
[2020-04-14] MEDS: NEBIVOLOL 10 MG TABLET (FP) PO SCH (09:35)
[2020-04-14] MEDS: oxyCODONE HCL 5 MG TABLET PO PRN ×2 (09:49→19:02)
[2020-04-14] MEDS ORDERED: INSULIN (NOVOLOG) ASPART 100 UNITS/ML 10ML VIAL ONE ×2 (11:35→16:36)
[2020-04-14] MEDS: INSULIN (LEVEMIR) 100 UNITS/ML UNITS SQ SCH (21:19)
[2020-04-14] MEDS: ATORVASTATIN CA 80 MG TABLET (FP) PO SCH (21:21)
[2020-04-14] MEDS: GABAPENTIN 100 MG CAPSULE PO SCH (21:22)
[2020-04-15] MEDS ORDERED: DEXTROSE 5%-WATER - 50 ML IVPB ONE ×3 (01:14→17:29)
[2020-04-15] MEDS ORDERED: PIPERACILLIN/TAZOBACTAM 2.25 GM VIAL IVPB ONE ×3 (01:14→17:29)
[2020-04-15] MEDS: PIPERACILLIN/TAZOB 2.25 GM 2.25 GM in DEXTROSE 5%-WATER - 50 ML IVPB SCH ×3 (01:19→18:35)
[2020-04-15] MEDS: INSULIN SLIDING SCALE (NOVOLOG) 1 VIAL SQ SCH ×4 (06:28→21:41)
[2020-04-15] MEDS ORDERED: INSULIN (LEVEMIR) 100 UNITS/ML UNITS SQ ONE (07:37)
[2020-04-15] MEDS: CALCIUM ACETATE 667 MG CAPSULE (FP) PO SCH ×3 (08:30→18:36)
[2020-04-15] MEDS: AMINO ACIDS/PROTEIN HYDROLYS 30 ML LIQUID.PKT PO SCH ×2 (08:30→18:36)
[2020-04-15] MEDS ORDERED: EPOETIN ALFA 20,000 UNIT/1 ML VIAL SQ ONE (11:00)
[2020-04-15] MEDS ORDERED: SODIUM CHLORIDE 250 ML IV PRN (11:00)
[2020-04-15] MEDS ORDERED: PT OWN MED DRAWER 7, Y5N ONE ×2 (11:20→13:56)
[2020-04-15] MEDS: oxyCODONE HCL 5 MG TABLET PO PRN ×2 (13:34→21:43)
[2020-04-15] MEDS: ACETAMINOPHEN 325 MG TABLET (FP) PO PRN ×2 (13:35→21:43)
[2020-04-15] MEDS: TAMSULOSIN HCL 0.4 MG CAP PO SCH (14:19)
[2020-04-15] MEDS: NEBIVOLOL 10 MG TABLET (FP) PO SCH (14:19)
[2020-04-15] MEDS: FINASTERIDE 5 MG TABLET (FP) PO SCH (14:19)
[2020-04-15] MEDS: DOXYCYCLINE HYCLATE 100 MG CAPSULE PO SCH ×2 (14:19→21:42)
[2020-04-15] MEDS: VITAMIN B COMPLEX W/C COMBO TABLET (FP) PO SCH (14:19)
[2020-04-15 15:39] LABS: BASO % 0.3 % (0-2.0); EOS % 2.7 % (0-4.5); HEMATOCRIT 28.8 % (35.4-49); HEMOGLOBIN 9.2 GM/dL (11.7-16.9); MCH 30.7 pg (25.7-33.7); MEAN CELL VOLUME 96.1 fl (80-96); MEAN PLT VOLUME 8.5 fl (7.5-11.1); MONO % 5.9 % (3.8-10.2); NEUT % 79.1 % (42.8-82.8); PLATELET COUNT 160 K/MM3 (134-434); RBC 2.99 M/mm3 (4.00-5.60); RDW 17.9 % (11.9-15.9); WHITE BLOOD COUNT 7.2 K/mm3 (4.0-10.0)
[2020-04-15 17:26] LABS: PLATELET ESTIMATE ADEQUATE
[2020-04-15] MEDS ORDERED: INSULIN (NOVOLOG) ASPART 100 UNITS/ML 10ML VIAL ONE (21:00)
[2020-04-15] MEDS: ATORVASTATIN CA 80 MG TABLET (FP) PO SCH (21:41)
[2020-04-15] MEDS: INSULIN (LEVEMIR) 100 UNITS/ML UNITS SQ SCH (21:42)
[2020-04-15] MEDS: GABAPENTIN 100 MG CAPSULE PO SCH (21:42)
[2020-04-16] MEDS ORDERED: PIPERACILLIN/TAZOBACTAM 2.25 GM VIAL IVPB ONE ×3 (01:42→17:16)
[2020-04-16] MEDS ORDERED: DEXTROSE 5%-WATER - 50 ML IVPB ONE ×3 (01:43→17:16)
[2020-04-16] MEDS: PIPERACILLIN/TAZOB 2.25 GM 2.25 GM in DEXTROSE 5%-WATER - 50 ML IVPB SCH ×3 (01:57→17:17)
[2020-04-16] MEDS ORDERED: INSULIN (LEVEMIR) 100 UNITS/ML UNITS SQ ONE (06:22)
[2020-04-16] MEDS ORDERED: INSULIN (NOVOLOG) ASPART 100 UNITS/ML 10ML VIAL ONE ×3 (08:29→21:06)
[2020-04-16] MEDS: FINASTERIDE 5 MG TABLET (FP) PO SCH (09:14)
[2020-04-16] MEDS: CALCIUM ACETATE 667 MG CAPSULE (FP) PO SCH ×3 (09:15→17:17)
[2020-04-16] MEDS: DOXYCYCLINE HYCLATE 100 MG CAPSULE PO SCH ×2 (09:15→18:39)
[2020-04-16] MEDS: AMINO ACIDS/PROTEIN HYDROLYS 30 ML LIQUID.PKT PO SCH ×2 (09:15→17:17)
[2020-04-16] MEDS: TAMSULOSIN HCL 0.4 MG CAP PO SCH (09:15)
[2020-04-16] MEDS: NEBIVOLOL 10 MG TABLET (FP) PO SCH (09:16)
[2020-04-16] MEDS: VITAMIN B COMPLEX W/C COMBO TABLET (FP) PO SCH (09:17)
[2020-04-16] MEDS: INSULIN SLIDING SCALE (NOVOLOG) 1 VIAL SQ SCH ×4 (09:30→21:35)
[2020-04-16] MEDS: oxyCODONE HCL 5 MG TABLET PO PRN ×2 (10:17→21:38)
[2020-04-16] MEDS: ACETAMINOPHEN 325 MG TABLET (FP) PO PRN ×2 (10:18→21:39)
[2020-04-16] MEDS ORDERED: SODIUM CHLORIDE 250 ML IV PRN (11:34)
[2020-04-16] MEDS: INSULIN (LEVEMIR) 100 UNITS/ML UNITS SQ SCH (21:36)
[2020-04-16] MEDS: GABAPENTIN 100 MG CAPSULE PO SCH (21:38)
[2020-04-16] MEDS: ATORVASTATIN CA 80 MG TABLET (FP) PO SCH (21:38)
[2020-04-17] MEDS ORDERED: DEXTROSE 5%-WATER - 50 ML IVPB ONE ×3 (01:37→17:02)
[2020-04-17] MEDS ORDERED: PIPERACILLIN/TAZOBACTAM 2.25 GM VIAL IVPB ONE ×3 (01:37→17:02)
[2020-04-17] MEDS: PIPERACILLIN/TAZOB 2.25 GM 2.25 GM in DEXTROSE 5%-WATER - 50 ML IVPB SCH ×3 (01:57→17:14)
[2020-04-17 07:31] LABS: HEMATOCRIT 27.9 % (35.4-49); HEMOGLOBIN 8.9 GM/dL (11.7-16.9); MCH 30.6 pg (25.7-33.7); MEAN CELL VOLUME 95.5 fl (80-96); MEAN PLT VOLUME 7.7 fl (7.5-11.1); PLATELET COUNT 315 K/MM3 (134-434); RBC 2.93 M/mm3 (4.00-5.60); RDW 17.9 % (11.9-15.9); WHITE BLOOD COUNT 6.2 K/mm3 (4.0-10.0)
[2020-04-17 07:53] LABS: BLOOD UREA NITROGEN 69.6 mg/dL (7-18); CALCIUM 8.5 mg/dL (8.5-10.1); CREATININE 6.5 mg/dL (0.55-1.3); PHOSPHOROUS 5.3 mg/dL (2.5-4.9); POTASSIUM 3.8 mmol/L (3.5-5.1)
[2020-04-17] MEDS: INSULIN SLIDING SCALE (NOVOLOG) 1 VIAL SQ SCH ×4 (08:00→22:13)
[2020-04-17] MEDS ORDERED: PT OWN MED DRAWER 7, Y5N ONE (08:18)
[2020-04-17] MEDS: AMINO ACIDS/PROTEIN HYDROLYS 30 ML LIQUID.PKT PO SCH ×2 (08:52→17:21)
[2020-04-17] MEDS: TAMSULOSIN HCL 0.4 MG CAP PO SCH (08:52)
[2020-04-17] MEDS: CALCIUM ACETATE 667 MG CAPSULE (FP) PO SCH ×3 (08:52→17:14)
[2020-04-17] MEDS: VITAMIN B COMPLEX W/C COMBO TABLET (FP) PO SCH (09:10)
[2020-04-17] MEDS: DOXYCYCLINE HYCLATE 100 MG CAPSULE PO SCH ×2 (09:10→18:31)
[2020-04-17] MEDS: FINASTERIDE 5 MG TABLET (FP) PO SCH (09:11)
[2020-04-17] MEDS: NEBIVOLOL 10 MG TABLET (FP) PO SCH (09:11)
[2020-04-17] MEDS ORDERED: INSULIN (NOVOLOG) ASPART 100 UNITS/ML 10ML VIAL ONE (09:38)
[2020-04-17] MEDS: oxyCODONE HCL 5 MG TABLET PO PRN ×2 (09:39→22:13)
[2020-04-17] MEDS: ACETAMINOPHEN 325 MG TABLET (FP) PO PRN (09:40)
[2020-04-17] MEDS ORDERED: EPOETIN ALFA 20,000 UNIT/1 ML VIAL IVPUSH ONE (10:00)
[2020-04-17] MEDS: INSULIN (LEVEMIR) 100 UNITS/ML UNITS SQ SCH (22:12)
[2020-04-17] MEDS: GABAPENTIN 100 MG CAPSULE PO SCH (22:13)
[2020-04-17] MEDS: ATORVASTATIN CA 80 MG TABLET (FP) PO SCH (22:13)
[2020-04-18] MEDS ORDERED: PIPERACILLIN/TAZOBACTAM 2.25 GM VIAL IVPB ONE ×3 (01:25→17:03)
[2020-04-18] MEDS ORDERED: DEXTROSE 5%-WATER - 50 ML IVPB ONE ×3 (01:25→17:03)
[2020-04-18] MEDS: PIPERACILLIN/TAZOB 2.25 GM 2.25 GM in DEXTROSE 5%-WATER - 50 ML IVPB SCH ×3 (02:04→17:10)
[2020-04-18] MEDS: INSULIN SLIDING SCALE (NOVOLOG) 1 VIAL SQ SCH ×4 (06:10→21:58)
[2020-04-18] MEDS: AMINO ACIDS/PROTEIN HYDROLYS 30 ML LIQUID.PKT PO SCH ×2 (08:40→17:10)
[2020-04-18] MEDS: TAMSULOSIN HCL 0.4 MG CAP PO SCH (08:40)
[2020-04-18] MEDS: CALCIUM ACETATE 667 MG CAPSULE (FP) PO SCH ×3 (08:40→17:10)
[2020-04-18] MEDS ORDERED: PT OWN MED DRAWER 7, Y5N ONE (09:33)
[2020-04-18] MEDS: FINASTERIDE 5 MG TABLET (FP) PO SCH (09:40)
[2020-04-18] MEDS: VITAMIN B COMPLEX W/C COMBO TABLET (FP) PO SCH (09:40)
[2020-04-18] MEDS: DOXYCYCLINE HYCLATE 100 MG CAPSULE PO SCH ×2 (09:40→18:52)
[2020-04-18] MEDS: NEBIVOLOL 10 MG TABLET (FP) PO SCH (09:41)
[2020-04-18] MEDS: oxyCODONE HCL 5 MG TABLET PO PRN (11:24)
[2020-04-18] MEDS ORDERED: INSULIN (NOVOLOG) ASPART 100 UNITS/ML 10ML VIAL ONE (21:21)
[2020-04-18] MEDS: ATORVASTATIN CA 80 MG TABLET (FP) PO SCH (21:59)
[2020-04-18] MEDS: GABAPENTIN 100 MG CAPSULE PO SCH (21:59)
[2020-04-18] MEDS: INSULIN (LEVEMIR) 100 UNITS/ML UNITS SQ SCH (22:00)
[2020-04-19] MEDS ORDERED: DEXTROSE 5%-WATER - 50 ML IVPB ONE ×3 (01:43→17:19)
[2020-04-19] MEDS ORDERED: PIPERACILLIN/TAZOBACTAM 2.25 GM VIAL IVPB ONE ×3 (01:43→17:18)
[2020-04-19] MEDS: PIPERACILLIN/TAZOB 2.25 GM 2.25 GM in DEXTROSE 5%-WATER - 50 ML IVPB SCH ×3 (02:08→17:22)
[2020-04-19 02:31] LABS: HEP B CORE AB, TOT Negative (Negative)
[2020-04-19] MEDS: INSULIN SLIDING SCALE (NOVOLOG) 1 VIAL SQ SCH ×4 (07:05→22:06)
[2020-04-19 08:03] LABS: HEMATOCRIT 27.2 % (35.4-49); HEMOGLOBIN 8.8 GM/dL (11.7-16.9); MCH 30.9 pg (25.7-33.7); MCHC 32.2 g/dl (32.0-35.9); MEAN CELL VOLUME 95.8 fl (80-96); MEAN PLT VOLUME 7.4 fl (7.5-11.1); PLATELET COUNT 295 K/MM3 (134-434); RBC 2.84 M/mm3 (4.00-5.60); WHITE BLOOD COUNT 5.9 K/mm3 (4.0-10.0)
[2020-04-19] MEDS: AMINO ACIDS/PROTEIN HYDROLYS 30 ML LIQUID.PKT PO SCH ×2 (08:28→17:22)
[2020-04-19] MEDS ORDERED: SODIUM CHLORIDE 250 ML IV PRN (08:30)
[2020-04-19] MEDS ORDERED: EPOETIN ALFA 20,000 UNIT/1 ML VIAL IVPUSH ONE (08:30)
[2020-04-19] MEDS: CALCIUM ACETATE 667 MG CAPSULE (FP) PO SCH ×3 (08:31→17:21)
[2020-04-19 08:35] LABS: BLOOD UREA NITROGEN 63.5 mg/dL (7-18); CALCIUM 8.9 mg/dL (8.5-10.1); CREATININE 6.1 mg/dL (0.55-1.3); PHOSPHOROUS 5.8 mg/dL (2.5-4.9); POTASSIUM 3.9 mmol/L (3.5-5.1)
[2020-04-19] MEDS ORDERED: PT OWN MED DRAWER 7, Y5N ONE ×2 (11:02→12:14)
[2020-04-19] MEDS: NEBIVOLOL 10 MG TABLET (FP) PO SCH (12:17)
[2020-04-19] MEDS: TAMSULOSIN HCL 0.4 MG CAP PO SCH (12:17)
[2020-04-19] MEDS: FINASTERIDE 5 MG TABLET (FP) PO SCH (12:18)
[2020-04-19] MEDS: VITAMIN B COMPLEX W/C COMBO TABLET (FP) PO SCH (12:18)
[2020-04-19] MEDS: DOXYCYCLINE HYCLATE 100 MG CAPSULE PO SCH ×2 (12:18→18:40)
[2020-04-19] MEDS: ACETAMINOPHEN 325 MG TABLET (FP) PO PRN ×2 (14:54→22:07)
[2020-04-19] MEDS ORDERED: INSULIN (NOVOLOG) ASPART 100 UNITS/ML 10ML VIAL ONE ×2 (16:36→21:44)
[2020-04-19] MEDS: INSULIN (LEVEMIR) 100 UNITS/ML UNITS SQ SCH (22:05)
[2020-04-19] MEDS: GABAPENTIN 100 MG CAPSULE PO SCH (22:07)
[2020-04-19] MEDS: ATORVASTATIN CA 80 MG TABLET (FP) PO SCH (22:07)
[2020-04-20] MEDS ORDERED: PIPERACILLIN/TAZOBACTAM 2.25 GM VIAL IVPB ONE ×3 (01:42→17:28)
[2020-04-20] MEDS ORDERED: DEXTROSE 5%-WATER - 50 ML IVPB ONE ×3 (01:42→17:28)
[2020-04-20] MEDS: PIPERACILLIN/TAZOB 2.25 GM 2.25 GM in DEXTROSE 5%-WATER - 50 ML IVPB SCH ×3 (01:46→17:42)
[2020-04-20] MEDS: TAMSULOSIN HCL 0.4 MG CAP PO SCH (08:08)
[2020-04-20] MEDS: AMINO ACIDS/PROTEIN HYDROLYS 30 ML LIQUID.PKT PO SCH ×2 (08:08→17:42)
[2020-04-20] MEDS: CALCIUM ACETATE 667 MG CAPSULE (FP) PO SCH ×3 (08:08→17:43)
[2020-04-20] MEDS: INSULIN SLIDING SCALE (NOVOLOG) 1 VIAL SQ SCH ×4 (09:15→23:50)
[2020-04-20] MEDS ORDERED: PT OWN MED DRAWER 7, Y5N ONE (09:20)
[2020-04-20] MEDS: NEBIVOLOL 10 MG TABLET (FP) PO SCH (09:44)
[2020-04-20] MEDS: DOXYCYCLINE HYCLATE 100 MG CAPSULE PO SCH ×2 (09:44→23:48)
[2020-04-20] MEDS: VITAMIN B COMPLEX W/C COMBO TABLET (FP) PO SCH (09:44)
[2020-04-20] MEDS: FINASTERIDE 5 MG TABLET (FP) PO SCH (09:44)
[2020-04-20] MEDS ORDERED: INSULIN (NOVOLOG) ASPART 100 UNITS/ML 10ML VIAL ONE (12:09)
[2020-04-20] MEDS: ACETAMINOPHEN 325 MG TABLET (FP) PO PRN (18:20)
[2020-04-20] MEDS: ATORVASTATIN CA 80 MG TABLET (FP) PO SCH (23:48)
[2020-04-20] MEDS: INSULIN (LEVEMIR) 100 UNITS/ML UNITS SQ SCH (23:48)
[2020-04-20] MEDS: GABAPENTIN 100 MG CAPSULE PO SCH (23:48)
[2020-04-20] MEDS: APIXABAN 5 MG TABLET PO SCH (23:51)
[2020-04-21] MEDS ORDERED: DEXTROSE 5%-WATER - 50 ML IVPB ONE ×2 (02:11→09:05)
[2020-04-21] MEDS ORDERED: PIPERACILLIN/TAZOBACTAM 2.25 GM VIAL IVPB ONE ×2 (02:11→09:05)
[2020-04-21] MEDS: PIPERACILLIN/TAZOB 2.25 GM 2.25 GM in DEXTROSE 5%-WATER - 50 ML IVPB SCH ×2 (02:18→09:14)
[2020-04-21] MEDS: INSULIN SLIDING SCALE (NOVOLOG) 1 VIAL SQ SCH ×2 (06:30→13:21)
[2020-04-21] MEDS ORDERED: PT OWN MED DRAWER 7, Y5N ONE ×2 (09:05→13:18)
[2020-04-21] MEDS: AMINO ACIDS/PROTEIN HYDROLYS 30 ML LIQUID.PKT PO SCH (09:13)
[2020-04-21] MEDS: TAMSULOSIN HCL 0.4 MG CAP PO SCH (09:13)
[2020-04-21] MEDS: FINASTERIDE 5 MG TABLET (FP) PO SCH (09:13)
[2020-04-21] MEDS: CALCIUM ACETATE 667 MG CAPSULE (FP) PO SCH ×2 (09:13→13:21)
[2020-04-21] MEDS: DOXYCYCLINE HYCLATE 100 MG CAPSULE PO SCH (09:13)
[2020-04-21] MEDS: VITAMIN B COMPLEX W/C COMBO TABLET (FP) PO SCH (09:14)
[2020-04-21] MEDS: NEBIVOLOL 10 MG TABLET (FP) PO SCH (09:14)
[2020-04-21] MEDS: APIXABAN 5 MG TABLET PO SCH (09:14)
[2020-04-21] MEDS: ACETAMINOPHEN 325 MG TABLET (FP) PO PRN (09:23)
[2020-04-21] MEDS ORDERED: TAMSULOSIN HCL PO SCH (10:00)
[2020-04-21 13:09] VITALS: BP 128/55; PULSE 68; TEMP 98.3
[2020-04-21] MEDS ORDERED: INSULIN (NOVOLOG) ASPART 100 UNITS/ML 10ML VIAL ONE (13:19)
== END 2020-04-21 14:57 | disposition home or self-care (01) | DRG 239 ==
LOC: JER 12:14 → JERBED 17:35 → J8W 04-06 00:45
PROVIDERS: ADMIT Internal Medicine; ATTEND Internal Medicine
PROC: 5A1D70Z Performance of Urinary Filtration, Intermittent, Less than 6 Hours Per Day (ICD-10-PCS; 2020-04-06)
PROC: 5A1D70Z Performance of Urinary Filtration, Intermittent, Less than 6 Hours Per Day (ICD-10-PCS; 2020-04-08)
PROC: 5A1D70Z Performance of Urinary Filtration, Intermittent, Less than 6 Hours Per Day (ICD-10-PCS; 2020-04-10)
PROC: 0Y6M0ZC Detachment at Right Foot, Partial 3rd Ray, Open Approach (ICD-10-PCS; 2020-04-11)
PROC: 0Y6M0ZD Detachment at Right Foot, Partial 4th Ray, Open Approach (ICD-10-PCS; 2020-04-11)
PROC: 0Y6M0ZF Detachment at Right Foot, Partial 5th Ray, Open Approach (ICD-10-PCS; 2020-04-11)
PROC: 0QBQ0ZZ Excision of Right Toe Phalanx, Open Approach (ICD-10-PCS; 2020-04-11)
PROC: 0Y6M0ZB Detachment at Right Foot, Partial 2nd Ray, Open Approach (ICD-10-PCS; principal; 2020-04-11 07:48)
PROC: 5A1D70Z Performance of Urinary Filtration, Intermittent, Less than 6 Hours Per Day (ICD-10-PCS; 2020-04-12)
PROC: 5A1D70Z Performance of Urinary Filtration, Intermittent, Less than 6 Hours Per Day (ICD-10-PCS; 2020-04-15)
PROC: 5A1D70Z Performance of Urinary Filtration, Intermittent, Less than 6 Hours Per Day (ICD-10-PCS; 2020-04-17)
PROC: 5A1D70Z Performance of Urinary Filtration, Intermittent, Less than 6 Hours Per Day (ICD-10-PCS; 2020-04-19)
DX: E11.52 Type 2 diabetes mellitus with diabetic peripheral angiopathy with gangrene (principal); N18.6 End stage renal disease; I96 Gangrene, not elsewhere classified; I69.351 Hemiplegia and hemiparesis following cerebral infarction affecting right dominant side; I12.0 Hypertensive chronic kidney disease with stage 5 chronic kidney disease or end stage renal disease; D63.1 Anemia in chronic kidney disease; L03.031 Cellulitis of right toe; N25.0 Renal osteodystrophy; E11.22 Type 2 diabetes mellitus with diabetic chronic kidney disease; E78.5 Hyperlipidemia, unspecified; I48.91 Unspecified atrial fibrillation; I25.10 Atherosclerotic heart disease of native coronary artery without angina pectoris; N40.0 Benign prostatic hyperplasia without lower urinary tract symptoms; E87.6 Hypokalemia; Z79.4 Long term (current) use of insulin; Z99.2 Dependence on renal dialysis
CPT/HCPCS: 36415; 71045-TC-FY; 73630-TC-RT-FY; 80048; 80053; 82272; 82962; 83735; 84100; 85025; 85027; 85610; 85730; 86704; 86706; 86707; 86708; 86709; 86803; 86850; 86900; 86901; 87040; 87070; 87077; 87186; 87205; 87324; 87340; 87449; 88307-TC; 88311-TC; 93005; 93010; 93922; 93926-TC; 94760; 97116-GP; 99285-25; G0463-25; J0885; Q5106; U0003

== ENCOUNTER 2020-06-27 11:18 | Inpatient (IN) | payer OTHER ==
[2020-06-27] MEDS ORDERED: ACETAMINOPHEN 1000 MG/100 ML BAG IVPB ONE (13:56)
[2020-06-27] MEDS ORDERED: ACETAMINOPHEN INJECTION 100 ML IVPB ONE ×2 (14:15→21:34)
[2020-06-27] MEDS ORDERED: PIPERACILLIN/TAZOB 2.25 GM 2.25 GM/50 ML BAG IVPB ONE (14:58)
[2020-06-27] MEDS: PIPERACILLIN/TAZOB 2.25 GM 2.25 GM in DEXTROSE 5%-WATER - 50 ML IVPB SCH (15:09)
[2020-06-27 15:34] LABS: INR 1.56 (0.83-1.09)
[2020-06-27 15:36] LABS: BASO % 0.3 % (0-2.0); EOS % 1.8 % (0-4.5); HEMATOCRIT 29.8 % (35.4-49); HEMOGLOBIN 9.3 GM/dL (11.7-16.9); LYMPH % 22.5 % (8-40); MCH 31.1 pg (25.7-33.7); MCHC 31.3 g/dl (32.0-35.9); MEAN CELL VOLUME 99.4 fl (80-96); MEAN PLT VOLUME 8.1 fl (7.5-11.1); MONO % 6.1 % (3.8-10.2); NEUT % 69.3 % (42.8-82.8); PLATELET COUNT 303 K/MM3 (134-434); RDW 17.4 % (11.9-15.9); WHITE BLOOD COUNT 8.9 K/mm3 (4.0-10.0)
[2020-06-27 15:46] LABS: CALCIUM 8.5 mg/dL (8.5-10.1)
[2020-06-27 15:47] LABS: BLOOD UREA NITROGEN 40.1 mg/dL (7-18)
[2020-06-27 15:50] LABS: CREATININE 5.2 mg/dL (0.55-1.3)
[2020-06-27 15:51] LABS: BILIRUBIN,TOTAL 0.5 mg/dL (0.2-1)
[2020-06-28] MEDS ORDERED: FLU VACCINE (FLULAVAL) PF 60 MCG/0.5 ML SYRINGE 2020-2021 IM ONE (00:16)
[2020-06-28] MEDS ORDERED: PIPERACILLIN/TAZOBACTAM 2.25 GM VIAL IVPB ONE ×4 (02:13→22:26)
[2020-06-28] MEDS ORDERED: DEXTROSE 5%-WATER - 50 ML IVPB ONE ×4 (02:14→22:26)
[2020-06-28] MEDS: PIPERACILLIN/TAZOB 2.25 GM 2.25 GM in DEXTROSE 5%-WATER - 50 ML IVPB SCH ×5 (02:47→21:41)
[2020-06-28] MEDS: ACETAMINOPHEN 500 MG TABLET (FP) PO PRN ×3 (11:04→21:41)
[2020-06-28] MEDS: ASPIRIN COATED 81 MG TABLET.EC PO SCH (11:06)
[2020-06-28] MEDS: CALCIUM ACETATE 667 MG CAPSULE (FP) PO SCH ×2 (11:07→17:23)
[2020-06-28] MEDS: INSULIN SLIDING SCALE (NOVOLOG) 1 VIAL SQ SCH ×3 (11:34→21:45)
[2020-06-28] MEDS ORDERED: SODIUM CHLORIDE 250 ML IV PRN ×3 (11:48→12:04)
[2020-06-28] MEDS ORDERED: EPOETIN ALFA-EPBX 10,000 UNIT/ML VIAL IVPUSH ONE (12:30)
[2020-06-28 13:26] LABS: EPI CELLS 23 /uL (0-25.1); HYALINE CASTS 2 /uL (0-3.1); URINE APPEARANCE CLEAR; URINE BACTERIA 13 /uL (0-1359); URINE BILIRUBIN NEGATIVE (NEGATIVE); URINE COLOR YELLOW; URINE GLUCOSE (UA) 2+ (NEGATIVE); URINE KETONE NEGATIVE (NEGATIVE); URINE LEUK ESTERASE NEGATIVE (NEGATIVE); URINE NITRITE NEGATIVE (NEGATIVE); URINE PROTEIN 2+ (NEGATIVE); URINE UROBILINOGEN 0.2 mg/dL (0.2-1.0); URINE WBC 44 /uL (0-25.8)
[2020-06-28 13:27] LABS: URINE RBC 65.5 /uL (0-23.9)
[2020-06-28] MEDS: NEBIVOLOL 10 MG TABLET (FP) PO SCH (16:08)
[2020-06-28] MEDS: ATORVASTATIN CA 80 MG TABLET (FP) PO SCH (21:42)
[2020-06-28] MEDS ORDERED: INSULIN (NOVOLOG) ASPART 100 UNITS/ML 10ML VIAL SQ ONE (23:55)
[2020-06-29] MEDS: PIPERACILLIN/TAZOB 2.25 GM 2.25 GM in DEXTROSE 5%-WATER - 50 ML IVPB SCH ×3 (01:45→18:50)
[2020-06-29] MEDS: ACETAMINOPHEN 500 MG TABLET (FP) PO PRN ×2 (06:01→21:42)
[2020-06-29] MEDS: INSULIN SLIDING SCALE (NOVOLOG) 1 VIAL SQ SCH ×6 (06:02→22:11)
[2020-06-29] MEDS ORDERED: DEXTROSE 5%-WATER - 50 ML IVPB ONE ×4 (10:41→22:39)
[2020-06-29] MEDS ORDERED: PIPERACILLIN/TAZOBACTAM 2.25 GM VIAL IVPB ONE ×4 (10:41→22:39)
[2020-06-29] MEDS: CALCIUM ACETATE 667 MG CAPSULE (FP) PO SCH ×3 (10:42→18:52)
[2020-06-29] MEDS: ASPIRIN COATED 81 MG TABLET.EC PO SCH (10:43)
[2020-06-29] MEDS ORDERED: PT OWN MED DRAWER 7, Y5N ONE (10:45)
[2020-06-29] MEDS: NEBIVOLOL 10 MG TABLET (FP) PO SCH (10:47)
[2020-06-29] MEDS: ATORVASTATIN CA 80 MG TABLET (FP) PO SCH (21:42)
[2020-06-30] MEDS: PIPERACILLIN/TAZOB 2.25 GM 2.25 GM in DEXTROSE 5%-WATER - 50 ML IVPB SCH ×3 (01:39→17:39)
[2020-06-30] MEDS: INSULIN SLIDING SCALE (NOVOLOG) 1 VIAL SQ SCH ×4 (06:16→21:15)
[2020-06-30] MEDS: ACETAMINOPHEN 500 MG TABLET (FP) PO PRN ×2 (06:17→21:14)
[2020-06-30 07:32] LABS: BASO % 0.3 % (0-2.0); HEMATOCRIT 31.8 % (35.4-49); HEMOGLOBIN 10.1 GM/dL (11.7-16.9); LYMPH % 21.2 % (8-40); MCH 30.9 pg (25.7-33.7); MCHC 31.8 g/dl (32.0-35.9); MEAN CELL VOLUME 97.1 fl (80-96); MEAN PLT VOLUME 7.7 fl (7.5-11.1); MONO % 5.4 % (3.8-10.2); NEUT % 69.1 % (42.8-82.8); PLATELET COUNT 325 K/MM3 (134-434); RBC 3.28 M/mm3 (4.00-5.60); RDW 16.8 % (11.9-15.9); WHITE BLOOD COUNT 7.4 K/mm3 (4.0-10.0)
[2020-06-30 08:04] LABS: ALBUMIN 2.8 g/dl (3.4-5.0); BLOOD UREA NITROGEN 36.3 mg/dL (7-18); CALCIUM 8.6 mg/dL (8.5-10.1)
[2020-06-30 08:07] LABS: BILIRUBIN,TOTAL 0.5 mg/dL (0.2-1); TOT PROT 6.8 g/dl (6.4-8.2)
[2020-06-30 08:08] LABS: CREATININE 5.7 mg/dL (0.55-1.3)
[2020-06-30] MEDS ORDERED: PT OWN MED DRAWER 7, Y5N ONE (10:23)
[2020-06-30] MEDS ORDERED: DEXTROSE 5%-WATER - 50 ML IVPB ONE ×3 (10:24→23:10)
[2020-06-30] MEDS ORDERED: PIPERACILLIN/TAZOBACTAM 2.25 GM VIAL IVPB ONE ×3 (10:24→23:10)
[2020-06-30] MEDS: CALCIUM ACETATE 667 MG CAPSULE (FP) PO SCH ×3 (10:44→16:35)
[2020-06-30] MEDS: NEBIVOLOL 10 MG TABLET (FP) PO SCH (10:44)
[2020-06-30] MEDS: ASPIRIN COATED 81 MG TABLET.EC PO SCH ×2 (10:50→12:36)
[2020-06-30] MEDS ORDERED: SODIUM CHLORIDE 250 ML IV PRN (15:26)
[2020-06-30] MEDS: NIFEdipine E.R. 30 MG TABLET PO SCH (18:08)
[2020-06-30] MEDS: ATORVASTATIN CA 80 MG TABLET (FP) PO SCH (21:15)
[2020-07-01] MEDS: PIPERACILLIN/TAZOB 2.25 GM 2.25 GM in DEXTROSE 5%-WATER - 50 ML IVPB SCH ×3 (01:55→18:21)
[2020-07-01] MEDS: ACETAMINOPHEN 500 MG TABLET (FP) PO PRN ×2 (06:14→21:32)
[2020-07-01] MEDS: INSULIN SLIDING SCALE (NOVOLOG) 1 VIAL SQ SCH ×4 (06:19→21:37)
[2020-07-01] MEDS ORDERED: PIPERACILLIN/TAZOBACTAM 2.25 GM VIAL IVPB ONE ×4 (08:55→22:14)
[2020-07-01] MEDS ORDERED: DEXTROSE 5%-WATER - 50 ML IVPB ONE ×4 (08:55→22:15)
[2020-07-01] MEDS ORDERED: PT OWN MED DRAWER 7, Y5N ONE ×2 (08:55→18:44)
[2020-07-01] MEDS: CALCIUM ACETATE 667 MG CAPSULE (FP) PO SCH ×3 (09:26→18:13)
[2020-07-01] MEDS: ASPIRIN COATED 81 MG TABLET.EC PO SCH (09:26)
[2020-07-01] MEDS: NEBIVOLOL 10 MG TABLET (FP) PO SCH (09:27)
[2020-07-01] MEDS ORDERED: EPOETIN ALFA 10,000 UNIT/1 ML VIAL IVPUSH ONE (15:00)
[2020-07-01] MEDS ORDERED: EPOETIN ALFA-EPBX 10,000 UNIT/ML VIAL IVPUSH ONE (15:00)
[2020-07-01 15:33] LABS: HEMATOCRIT 28.5 % (35.4-49); HEMOGLOBIN 8.9 GM/dL (11.7-16.9); MCH 30.1 pg (25.7-33.7); MCHC 31.4 g/dl (32.0-35.9); MEAN CELL VOLUME 96.1 fl (80-96); MEAN PLT VOLUME 7.7 fl (7.5-11.1); PLATELET COUNT 295 K/MM3 (134-434); RBC 2.96 M/mm3 (4.00-5.60); RDW 16.3 % (11.9-15.9); WHITE BLOOD COUNT 6.7 K/mm3 (4.0-10.0)
[2020-07-01 15:56] LABS: CALCIUM 8.5 mg/dL (8.5-10.1)
[2020-07-01 15:57] LABS: BLOOD UREA NITROGEN 49.8 mg/dL (7-18)
[2020-07-01 16:00] LABS: CREATININE 6.7 mg/dL (0.55-1.3)
[2020-07-01] MEDS: NIFEdipine E.R. 30 MG TABLET PO SCH (18:13)
[2020-07-01] MEDS: ATORVASTATIN CA 80 MG TABLET (FP) PO SCH (21:31)
[2020-07-02] MEDS ORDERED: DEXTROSE 50%-WATER - 25 GM/50 ML VIAL IVPUSH ONE (00:03)
[2020-07-02] MEDS: PIPERACILLIN/TAZOB 2.25 GM 2.25 GM in DEXTROSE 5%-WATER - 50 ML IVPB SCH ×3 (01:43→17:33)
[2020-07-02] MEDS ORDERED: INSULIN (NOVOLOG) ASPART 100 UNITS/ML 10ML VIAL SQ ONE (06:54)
[2020-07-02] MEDS: INSULIN SLIDING SCALE (NOVOLOG) 1 VIAL SQ SCH ×4 (07:03→22:16)
[2020-07-02] MEDS ORDERED: PIPERACILLIN/TAZOBACTAM 2.25 GM VIAL IVPB ONE ×2 (08:38→16:49)
[2020-07-02] MEDS ORDERED: DEXTROSE 5%-WATER - 50 ML IVPB ONE ×2 (08:38→16:49)
[2020-07-02] MEDS ORDERED: PT OWN MED DRAWER 7, Y5N ONE ×2 (08:38→08:41)
[2020-07-02 08:49] LABS: BLOOD UREA NITROGEN 24.9 mg/dL (7-18)
[2020-07-02 08:50] LABS: CALCIUM 8.2 mg/dL (8.5-10.1)
[2020-07-02 08:52] LABS: CREATININE 4.1 mg/dL (0.55-1.3)
[2020-07-02] MEDS: CALCIUM ACETATE 667 MG CAPSULE (FP) PO SCH ×3 (08:59→16:55)
[2020-07-02] MEDS: NEBIVOLOL 10 MG TABLET (FP) PO SCH (09:00)
[2020-07-02] MEDS ORDERED: LIDOCAINE HCL 1%, 10 MG/ML (20ML VIAL) ONE (09:37)
[2020-07-02] MEDS ORDERED: SODIUM CHLORIDE 0.9% P/F 10 ML VIAL IJ ONE ×2 (09:52→12:06)
[2020-07-02 11:36] LABS: INR 1.09 (0.83-1.09); PROTHROMBIN TIME (PATIENT) 13.2 SEC (9.7-13.0)
[2020-07-02] MEDS ORDERED: SODIUM CHLORIDE 250 ML IV PRN ×4 (11:42→13:37)
[2020-07-02] MEDS ORDERED: VANCOMYCIN 1,000 MG VIAL (RESTRICTED TO ID ONLY) ONE (12:12)
[2020-07-02] MEDS ORDERED: MIDAZOLAM HCL 2 MG/2 ML SINGLE DOSE VIAL ONE ×2 (12:22→12:57)
[2020-07-02] MEDS ORDERED: BUPIVACAINE HCL/PF 0.5% (5 MG/ML) 30 ML VIAL IJ ONE (12:37)
[2020-07-02] MEDS ORDERED: LIDOCAINE HCL 1% PRESERVATIVE FREE - 30ML VIAL INF ONE (12:37)
[2020-07-02] MEDS ORDERED: LIDOCAINE HCL 1%, 10 MG/ML (20ML VIAL) INF ONE (12:37)
[2020-07-02] MEDS ORDERED: VANCOMYCIN 1,000 MG VIAL (RESTRICTED TO ID ONLY) IVPB ONE (12:59)
[2020-07-02] MEDS ORDERED: ONDANSETRON 4 MG/2 ML VIAL IVPUSH PRN ×2 (12:59→13:37)
[2020-07-02] MEDS ORDERED: oxyCODONE HCL 5 MG TABLET PO PRN (12:59)
[2020-07-02] MEDS ORDERED: BACITRACIN 50,000 UNITS VIAL TP ONE (13:11)
[2020-07-02] MEDS ORDERED: EPOETIN ALFA 10,000 UNIT/1 ML VIAL IVPUSH ONE (13:37)
[2020-07-02 14:36] LABS: BASO % 0.2 % (0-2.0); EOS % 3.6 % (0-4.5); HEMATOCRIT 30.3 % (35.4-49); HEMOGLOBIN 9.5 GM/dL (11.7-16.9); LYMPH % 21.8 % (8-40); MCH 30.3 pg (25.7-33.7); MCHC 31.2 g/dl (32.0-35.9); MEAN CELL VOLUME 97.2 fl (80-96); MEAN PLT VOLUME 7.9 fl (7.5-11.1); MONO % 9.2 % (3.8-10.2); NEUT % 65.2 % (42.8-82.8); PLATELET COUNT 286 K/MM3 (134-434); RBC 3.12 M/mm3 (4.00-5.60); RDW 16.4 % (11.9-15.9); WHITE BLOOD COUNT 6.4 K/mm3 (4.0-10.0)
[2020-07-02] MEDS: oxyCODONE HCL 5 MG TABLET PO PRN ×2 (16:57→22:12)
[2020-07-02] MEDS: ACETAMINOPHEN 500 MG TABLET (FP) PO PRN (19:28)
[2020-07-02] MEDS: ATORVASTATIN CA 80 MG TABLET (FP) PO SCH (22:12)
[2020-07-03] MEDS ORDERED: PIPERACILLIN/TAZOBACTAM 2.25 GM VIAL IVPB ONE ×3 (02:25→17:43)
[2020-07-03] MEDS ORDERED: DEXTROSE 5%-WATER - 50 ML IVPB ONE ×3 (02:26→17:43)
[2020-07-03] MEDS: PIPERACILLIN/TAZOB 2.25 GM 2.25 GM in DEXTROSE 5%-WATER - 50 ML IVPB SCH ×3 (02:33→17:59)
[2020-07-03] MEDS: ACETAMINOPHEN 500 MG TABLET (FP) PO PRN ×3 (02:34→18:08)
[2020-07-03] MEDS: INSULIN SLIDING SCALE (NOVOLOG) 1 VIAL SQ SCH ×4 (06:02→22:04)
[2020-07-03] MEDS ORDERED: EPOETIN ALFA 20,000 UNIT/1 ML VIAL IVPUSH ONE ×2 (08:00→14:00)
[2020-07-03] MEDS: ASPIRIN COATED 81 MG TABLET.EC PO SCH (09:02)
[2020-07-03] MEDS: CALCIUM ACETATE 667 MG CAPSULE (FP) PO SCH ×3 (09:02→17:59)
[2020-07-03] MEDS: NEBIVOLOL 10 MG TABLET (FP) PO SCH (09:03)
[2020-07-03] MEDS ORDERED: INSULIN (NOVOLOG) ASPART 100 UNITS/ML 10ML VIAL ONE (11:40)
[2020-07-03 14:04] LABS: HEMATOCRIT 28.3 % (35.4-49); HEMOGLOBIN 8.7 GM/dL (11.7-16.9); MCH 29.7 pg (25.7-33.7); MCHC 30.7 g/dl (32.0-35.9); MEAN CELL VOLUME 96.6 fl (80-96); MEAN PLT VOLUME 7.3 fl (7.5-11.1); PLATELET COUNT 262 K/MM3 (134-434); RBC 2.93 M/mm3 (4.00-5.60); RDW 16.4 % (11.9-15.9); WHITE BLOOD COUNT 7.5 K/mm3 (4.0-10.0)
[2020-07-03 14:22] LABS: BLOOD UREA NITROGEN 32.6 mg/dL (7-18); CALCIUM 8.4 mg/dL (8.5-10.1)
[2020-07-03 14:25] LABS: CREATININE 5.7 mg/dL (0.55-1.3)
[2020-07-03] MEDS: ATORVASTATIN CA 80 MG TABLET (FP) PO SCH (22:04)
[2020-07-04] MEDS ORDERED: PIPERACILLIN/TAZOBACTAM 2.25 GM VIAL IVPB ONE ×3 (00:22→16:24)
[2020-07-04] MEDS ORDERED: DEXTROSE 5%-WATER - 50 ML IVPB ONE ×3 (00:22→16:24)
[2020-07-04] MEDS: PIPERACILLIN/TAZOB 2.25 GM 2.25 GM in DEXTROSE 5%-WATER - 50 ML IVPB SCH ×3 (02:00→17:00)
[2020-07-04] MEDS: ACETAMINOPHEN 500 MG TABLET (FP) PO PRN ×3 (03:44→21:27)
[2020-07-04] MEDS: INSULIN SLIDING SCALE (NOVOLOG) 1 VIAL SQ SCH ×4 (06:23→21:28)
[2020-07-04 07:56] LABS: BASO % 0.4 % (0-2.0); EOS % 2.6 % (0-4.5); HEMOGLOBIN 8.8 GM/dL (11.7-16.9); LYMPH % 24.8 % (8-40); MCH 30.6 pg (25.7-33.7); MCHC 31.4 g/dl (32.0-35.9); MEAN CELL VOLUME 97.3 fl (80-96); MEAN PLT VOLUME 7.8 fl (7.5-11.1); MONO % 7.4 % (3.8-10.2); NEUT % 64.8 % (42.8-82.8); PLATELET COUNT 264 K/MM3 (134-434); RBC 2.88 M/mm3 (4.00-5.60); RDW 16.3 % (11.9-15.9); WHITE BLOOD COUNT 6.9 K/mm3 (4.0-10.0)
[2020-07-04] MEDS: CALCIUM ACETATE 667 MG CAPSULE (FP) PO SCH ×3 (09:18→16:47)
[2020-07-04] MEDS: NEBIVOLOL 10 MG TABLET (FP) PO SCH (09:18)
[2020-07-04] MEDS: ASPIRIN COATED 81 MG TABLET.EC PO SCH (09:19)
[2020-07-04] MEDS ORDERED: INSULIN (NOVOLOG) ASPART 100 UNITS/ML 10ML VIAL ONE ×2 (12:03→21:21)
[2020-07-04] MEDS ORDERED: POLYETHYLENE GLYCOL 3350 119 GM BTL PO PRN (14:02)
[2020-07-04] MEDS: ATORVASTATIN CA 80 MG TABLET (FP) PO SCH (21:28)
[2020-07-05] MEDS ORDERED: PIPERACILLIN/TAZOBACTAM 2.25 GM VIAL IVPB ONE ×2 (01:34→10:16)
[2020-07-05] MEDS ORDERED: DEXTROSE 5%-WATER - 50 ML IVPB ONE ×2 (01:35→10:17)
[2020-07-05] MEDS: PIPERACILLIN/TAZOB 2.25 GM 2.25 GM in DEXTROSE 5%-WATER - 50 ML IVPB SCH ×2 (01:39→13:46)
[2020-07-05] MEDS: ACETAMINOPHEN 500 MG TABLET (FP) PO PRN ×2 (07:17→16:00)
[2020-07-05] MEDS: INSULIN SLIDING SCALE (NOVOLOG) 1 VIAL SQ SCH ×4 (07:18→17:25)
[2020-07-05] MEDS: CALCIUM ACETATE 667 MG CAPSULE (FP) PO SCH ×3 (07:19→17:10)
[2020-07-05] MEDS ORDERED: SODIUM CHLORIDE 250 ML IV PRN (10:13)
[2020-07-05] MEDS ORDERED: PT OWN MED DRAWER 7, Y5N ONE ×3 (10:16→17:28)
[2020-07-05 10:32] VITALS: BMI 24.7
[2020-07-05] MEDS ORDERED: EPOETIN ALFA 20,000 UNIT/1 ML VIAL IVPUSH ONE (11:00)
[2020-07-05 12:12] LABS: CALCIUM 8.7 mg/dL (8.5-10.1); CREATININE 5.4 mg/dL (0.55-1.3); PHOSPHOROUS 3.6 mg/dL (2.5-4.9)
[2020-07-05 12:19] LABS: HEMATOCRIT 28.4 % (35.4-49); HEMOGLOBIN 8.8 GM/dL (11.7-16.9); MCHC 31.1 g/dl (32.0-35.9); MEAN CELL VOLUME 96.4 fl (80-96); MEAN PLT VOLUME 7.9 fl (7.5-11.1); PLATELET COUNT 278 K/MM3 (134-434); RBC 2.95 M/mm3 (4.00-5.60); RDW 16.7 % (11.9-15.9)
[2020-07-05] MEDS ORDERED: CEFTAZIDIME PENTAHYDRATE 2 GM in DEXTROSE 5%-WATER 100 ML IVPB ONE (15:00)
[2020-07-05 15:24] VITALS: BP 142/99; PULSE 83; TEMP 98.6
[2020-07-05] MEDS: NEBIVOLOL 10 MG TABLET (FP) PO SCH (15:48)
[2020-07-05] MEDS: ASPIRIN COATED 81 MG TABLET.EC PO SCH (15:48)
[2020-07-05] MEDS ORDERED: AMINO ACIDS/PROTEIN HYDROLYS 30 ML LIQUID.PKT PO SCH (17:30)
== END 2020-07-05 18:04 | disposition home health service (06) | DRG 907 ==
LOC: JER 11:18 → JERBED 17:25 → J7W 21:58
PROVIDERS: ADMIT Internal Medicine; ATTEND Internal Medicine
PROC: 5A1D70Z Performance of Urinary Filtration, Intermittent, Less than 6 Hours Per Day (ICD-10-PCS; 2020-07-01)
PROC: 0QBQ0ZX Excision of Right Toe Phalanx, Open Approach, Diagnostic (ICD-10-PCS; 2020-07-02)
PROC: 0QBN0ZZ Excision of Right Metatarsal, Open Approach (ICD-10-PCS; principal; 2020-07-02 10:00)
PROC: 5A1D70Z Performance of Urinary Filtration, Intermittent, Less than 6 Hours Per Day (ICD-10-PCS; 2020-07-03)
PROC: 5A1D70Z Performance of Urinary Filtration, Intermittent, Less than 6 Hours Per Day (ICD-10-PCS; 2020-07-05)
DX: T86.821 Skin graft (allograft) (autograft) failure (principal); N18.6 End stage renal disease; E11.52 Type 2 diabetes mellitus with diabetic peripheral angiopathy with gangrene; M86.9 Osteomyelitis, unspecified; I96 Gangrene, not elsewhere classified; L97.518 Non-pressure chronic ulcer of other part of right foot with other specified severity; I12.0 Hypertensive chronic kidney disease with stage 5 chronic kidney disease or end stage renal disease; E11.628 Type 2 diabetes mellitus with other skin complications; E11.22 Type 2 diabetes mellitus with diabetic chronic kidney disease; Z99.2 Dependence on renal dialysis; D63.1 Anemia in chronic kidney disease; N25.0 Renal osteodystrophy; L08.9 Local infection of the skin and subcutaneous tissue, unspecified; L03.031 Cellulitis of right toe; Y83.8 Other surgical procedures as the cause of abnormal reaction of the patient, or of later complication, without mention of misadventure at the time of the procedure; E78.5 Hyperlipidemia, unspecified; E11.649 Type 2 diabetes mellitus with hypoglycemia without coma; E11.621 Type 2 diabetes mellitus with foot ulcer
CPT/HCPCS: 36415; 73630-TC-RT-FY; 80048; 80053; 81003; 82962; 84100; 85025; 85027; 85610; 85730; 86803; 86850; 86900; 86901; 87040; 87070; 87075; 87076; 87077; 87186; 87205; 87340; 88304-TC; 88305-TC; 88311-TC; 93005; 93010; 93970-TC; 94760; 97116-GP; 97161-GP; 99285-25; C9803; G0008; G0463-25; J0885; Q2036; Q5106; U0003

== ENCOUNTER 2021-01-09 12:49 | Inpatient (IN) | payer OTHER ==
[2021-01-09 14:43] LABS: BASO % 0.4 % (0-2.0); EOS % 1.3 % (0-4.5); HEMATOCRIT 39.4 % (35.4-49); HEMOGLOBIN 12.9 GM/dL (11.7-16.9); LYMPH % 19.1 % (8-40); MCH 33.2 pg (25.7-33.7); MCHC 32.8 g/dl (32.0-35.9); MEAN CELL VOLUME 101.2 fl (80-96); MEAN PLT VOLUME 7.6 fl (7.5-11.1); MONO % 4.3 % (3.8-10.2); NEUT % 74.9 % (42.8-82.8); PLATELET COUNT 205 10^3/uL (134-434); RBC 3.89 M/mm3 (4.00-5.60)
[2021-01-09 14:49] LABS: INR 0.96 (0.83-1.09); PROTHROMBIN TIME (PATIENT) 11.8 SEC (9.7-13.0)
[2021-01-09 15:00] LABS: CHLORIDE 100 mmol/L (98-107); SODIUM 134 mmol/L (136-145)
[2021-01-09 15:02] LABS: ALBUMIN 4.1 g/dl (3.4-5.0); ANION GAP 10 MMOL/L (8-16); BLOOD UREA NITROGEN 56.6 mg/dL (7-18); CALCIUM 8.5 mg/dL (8.5-10.1); CO2 24 mmol/L (21-32); GLUCOSE,RANDOM 258 mg/dL (74-106)
[2021-01-09 15:05] LABS: SGOT/AST 49 U/L (15-37); SGPT/ALT 28 U/L (13-61)
[2021-01-09 15:07] LABS: BILIRUBIN,TOTAL 0.7 mg/dL (0.2-1); TOT PROT 7.8 g/dl (6.4-8.2)
[2021-01-09 15:08] LABS: ALK PHOS 132 U/L (45-117)
[2021-01-09 15:09] LABS: CREATININE 7.8 mg/dL (0.55-1.3)
[2021-01-09] MEDS ORDERED: CEFTRIAXONE 2,000 MG in DEXTROSE 5%-WATER - 50 ML IVPB ONE (16:16)
[2021-01-09] MEDS ORDERED: CEFTRIAXONE 2 GM/100 ML BAG IVPB ONE (16:39)
[2021-01-09] MEDS ORDERED: INSULIN SLIDING SCALE (NOVOLOG) 1 VIAL SQ ONE (22:10)
[2021-01-09] MEDS: INSULIN SLIDING SCALE (NOVOLOG) 1 VIAL SQ SCH (22:16)
[2021-01-10] MEDS: INSULIN SLIDING SCALE (NOVOLOG) 1 VIAL SQ SCH ×4 (06:33→21:02)
[2021-01-10] MEDS: CALCIUM ACETATE 667 MG CAPSULE (FP) PO SCH ×3 (06:33→21:01)
[2021-01-10 08:58] LABS: BASO % 0.3 % (0-2.0); EOS % 1.6 % (0-4.5); HEMATOCRIT 40.1 % (35.4-49); HEMOGLOBIN 12.9 GM/dL (11.7-16.9); MCH 32.9 pg (25.7-33.7); MCHC 32.2 g/dl (32.0-35.9); MEAN CELL VOLUME 102.2 fl (80-96); MEAN PLT VOLUME 7.9 fl (7.5-11.1); MONO % 5.3 % (3.8-10.2); NEUT % 69.8 % (42.8-82.8); PLATELET COUNT 207 10^3/uL (134-434); RBC 3.93 M/mm3 (4.00-5.60); RDW 14.3 % (11.9-15.9); WHITE BLOOD COUNT 5.6 K/mm3 (4.0-10.0)
[2021-01-10] MEDS: ASPIRIN 81 MG CHEWABLE TABLETS PO SCH (09:24)
[2021-01-10] MEDS ORDERED: PT OWN MED DRAWER 7, Y5N ONE (09:24)
[2021-01-10] MEDS: NEBIVOLOL 10 MG TABLET (FP) PO SCH (09:24)
[2021-01-10] MEDS: ALLOPURINOL 100 MG TABLET (FP) PO SCH (09:25)
[2021-01-10] MEDS: APIXABAN 5 MG TABLET PO SCH ×2 (09:25→21:02)
[2021-01-10 09:41] LABS: ALBUMIN 3.9 g/dl (3.4-5.0); ALK PHOS 125 U/L (45-117); ANION GAP 15 MMOL/L (8-16); BILIRUBIN,TOTAL 0.5 mg/dL (0.2-1); BLOOD UREA NITROGEN 55.1 mg/dL (7-18); CALCIUM 8.6 mg/dL (8.5-10.1); CHLORIDE 102 mmol/L (98-107); CO2 20 mmol/L (21-32); CREATININE 9.1 mg/dL (0.55-1.3); GLUCOSE,RANDOM 153 mg/dL (74-106); SGOT/AST 26 U/L (15-37); SGPT/ALT 20 U/L (13-61); SODIUM 137 mmol/L (136-145); TOT PROT 7.3 g/dl (6.4-8.2)
[2021-01-10] MEDS ORDERED: SODIUM CHLORIDE 250 ML IV PRN ×2 (10:29→12:32)
[2021-01-10 12:32] VITALS: BMI 27.1
[2021-01-10] MEDS ORDERED: VANCOMYCIN 1 GM PREMIX - 1 GM/200 ML BAG IVPB ONE (13:30)
[2021-01-10] MEDS ORDERED: CEFTRIAXONE 2 GM in DEXTROSE 5%-WATER 2 GM/50 ML BAG IVPB ONE (16:00)
[2021-01-10] MEDS ORDERED: DEXTROSE 5%-WATER - 50 ML IVPB ONE (16:23)
[2021-01-10] MEDS ORDERED: cefTAZidime PENTAHYDRATE 1 GM VIAL (RESTRICTED TO ID) ONE (16:23)
[2021-01-10] MEDS: CEFTAZIDIME PENTAHYDRATE 1 GM in DEXTROSE 5%-WATER - 50 ML IVPB SCH (17:04)
[2021-01-10] MEDS: ATORVASTATIN CA 80 MG TABLET (FP) PO SCH (21:02)
[2021-01-11] MEDS: CALCIUM ACETATE 667 MG CAPSULE (FP) PO SCH ×2 (05:58→17:49)
[2021-01-11] MEDS: INSULIN SLIDING SCALE (NOVOLOG) 1 VIAL SQ SCH ×4 (06:00→21:30)
[2021-01-11] MEDS ORDERED: PT OWN MED DRAWER 7, Y5N ONE ×2 (09:02→12:08)
[2021-01-11] MEDS: ALLOPURINOL 100 MG TABLET (FP) PO SCH (09:14)
[2021-01-11] MEDS: APIXABAN 5 MG TABLET PO SCH ×2 (09:14→21:30)
[2021-01-11] MEDS: NEBIVOLOL 10 MG TABLET (FP) PO SCH (09:14)
[2021-01-11] MEDS: ASPIRIN 81 MG CHEWABLE TABLETS PO SCH (09:15)
[2021-01-11 11:05] LABS: CALCIUM 8.8 mg/dL (8.5-10.1)
[2021-01-11 11:06] LABS: BLOOD UREA NITROGEN 45.1 mg/dL (7-18)
[2021-01-11 11:08] LABS: CREATININE 7.1 mg/dL (0.55-1.3)
[2021-01-11] MEDS ORDERED: DEXTROSE 5%-WATER - 50 ML IVPB ONE (14:58)
[2021-01-11] MEDS ORDERED: cefTAZidime PENTAHYDRATE 1 GM VIAL (RESTRICTED TO ID) ONE (14:58)
[2021-01-11] MEDS: COLLAGENASE CLOSTRIDIUM HIST. 30 GRAMS TUBE TP SCH (15:24)
[2021-01-11] MEDS: CEFTAZIDIME PENTAHYDRATE 1 GM in DEXTROSE 5%-WATER - 50 ML IVPB SCH (15:25)
[2021-01-11] MEDS: ACETAMINOPHEN 325 MG TABLET (FP) PO PRN (21:29)
[2021-01-11] MEDS: ATORVASTATIN CA 80 MG TABLET (FP) PO SCH (21:30)
[2021-01-12] MEDS: INSULIN SLIDING SCALE (NOVOLOG) 1 VIAL SQ SCH ×4 (06:22→21:51)
[2021-01-12] MEDS ORDERED: PT OWN MED DRAWER 7, Y5N ONE (09:31)
[2021-01-12] MEDS: CALCIUM ACETATE 667 MG CAPSULE (FP) PO SCH ×3 (09:58→17:37)
[2021-01-12] MEDS: ALLOPURINOL 100 MG TABLET (FP) PO SCH (09:59)
[2021-01-12] MEDS: APIXABAN 5 MG TABLET PO SCH ×2 (09:59→21:51)
[2021-01-12] MEDS: NEBIVOLOL 10 MG TABLET (FP) PO SCH (09:59)
[2021-01-12] MEDS: ASPIRIN 81 MG CHEWABLE TABLETS PO SCH (09:59)
[2021-01-12] MEDS: COLLAGENASE CLOSTRIDIUM HIST. 30 GRAMS TUBE TP SCH (10:00)
[2021-01-12] MEDS ORDERED: cefTAZidime PENTAHYDRATE 1 GM VIAL (RESTRICTED TO ID) ONE (15:02)
[2021-01-12] MEDS ORDERED: DEXTROSE 5%-WATER - 50 ML IVPB ONE (15:03)
[2021-01-12] MEDS: CEFTAZIDIME PENTAHYDRATE 1 GM in DEXTROSE 5%-WATER - 50 ML IVPB SCH (15:44)
[2021-01-12] MEDS: ACETAMINOPHEN 325 MG TABLET (FP) PO PRN (20:42)
[2021-01-12] MEDS: ATORVASTATIN CA 80 MG TABLET (FP) PO SCH (21:51)
[2021-01-12] MEDS: INSULIN (LEVEMIR) 100 UNITS/ML UNITS SQ SCH (21:51)
[2021-01-13] MEDS: INSULIN SLIDING SCALE (NOVOLOG) 1 VIAL SQ SCH ×4 (06:04→21:07)
[2021-01-13] MEDS: CALCIUM ACETATE 667 MG CAPSULE (FP) PO SCH ×3 (08:39→17:54)
[2021-01-13 09:22] LABS: BASO % 0.2 % (0-2.0); EOS % 2.4 % (0-4.5); HEMATOCRIT 39.5 % (35.4-49); HEMOGLOBIN 12.9 GM/dL (11.7-16.9); LYMPH % 21.7 % (8-40); MCH 32.9 pg (25.7-33.7); MCHC 32.7 g/dl (32.0-35.9); MEAN CELL VOLUME 100.7 fl (80-96); MEAN PLT VOLUME 7.9 fl (7.5-11.1); NEUT % 70.7 % (42.8-82.8); PLATELET COUNT 218 10^3/uL (134-434); RBC 3.93 M/mm3 (4.00-5.60); WHITE BLOOD COUNT 6.1 K/mm3 (4.0-10.0)
[2021-01-13 09:46] LABS: CHLORIDE 100 mmol/L (98-107); SODIUM 140 mmol/L (136-145)
[2021-01-13] MEDS ORDERED: PT OWN MED DRAWER 7, Y5N ONE (10:06)
[2021-01-13] MEDS: ALLOPURINOL 100 MG TABLET (FP) PO SCH (10:08)
[2021-01-13] MEDS: APIXABAN 5 MG TABLET PO SCH ×2 (10:08→21:07)
[2021-01-13] MEDS: ASPIRIN 81 MG CHEWABLE TABLETS PO SCH (10:08)
[2021-01-13] MEDS: NEBIVOLOL 10 MG TABLET (FP) PO SCH (10:08)
[2021-01-13 10:13] LABS: CALCIUM 8.9 mg/dL (8.5-10.1)
[2021-01-13 10:14] LABS: ANION GAP 16 MMOL/L (8-16); CO2 25 mmol/L (21-32); GLUCOSE,RANDOM 169 mg/dL (74-106)
[2021-01-13] MEDS: COLLAGENASE CLOSTRIDIUM HIST. 30 GRAMS TUBE TP SCH (10:35)
[2021-01-13 11:05] LABS: BLOOD UREA NITROGEN 74.9 mg/dL (7-18); CREATININE 11.1 mg/dL (0.55-1.3)
[2021-01-13] MEDS ORDERED: cefTAZidime PENTAHYDRATE 1 GM VIAL (RESTRICTED TO ID) ONE (16:27)
[2021-01-13] MEDS ORDERED: DEXTROSE 5%-WATER - 50 ML IVPB ONE (16:27)
[2021-01-13] MEDS: CEFTAZIDIME PENTAHYDRATE 1 GM in DEXTROSE 5%-WATER - 50 ML IVPB SCH (16:30)
[2021-01-13] MEDS: ATORVASTATIN CA 80 MG TABLET (FP) PO SCH (21:07)
[2021-01-13] MEDS: INSULIN (LEVEMIR) 100 UNITS/ML UNITS SQ SCH (21:08)
[2021-01-14] MEDS: ACETAMINOPHEN 325 MG TABLET (FP) PO PRN (00:55)
[2021-01-14] MEDS: INSULIN SLIDING SCALE (NOVOLOG) 1 VIAL SQ SCH ×4 (06:00→21:28)
[2021-01-14] MEDS ORDERED: INSULIN (NOVOLOG) ASPART 100 UNITS/ML 10ML VIAL ONE (06:23)
[2021-01-14] MEDS ORDERED: PT OWN MED DRAWER 7, Y5N ONE (10:14)
[2021-01-14] MEDS: ALLOPURINOL 100 MG TABLET (FP) PO SCH (10:17)
[2021-01-14] MEDS: ASPIRIN 81 MG CHEWABLE TABLETS PO SCH (10:17)
[2021-01-14] MEDS: NEBIVOLOL 10 MG TABLET (FP) PO SCH (10:17)
[2021-01-14] MEDS: COLLAGENASE CLOSTRIDIUM HIST. 30 GRAMS TUBE TP SCH (10:17)
[2021-01-14] MEDS: CALCIUM ACETATE 667 MG CAPSULE (FP) PO SCH ×3 (10:17→16:55)
[2021-01-14] MEDS: APIXABAN 5 MG TABLET PO SCH ×2 (10:17→21:28)
[2021-01-14] MEDS ORDERED: SODIUM CHLORIDE 250 ML IV PRN (14:56)
[2021-01-14] MEDS ORDERED: DEXTROSE 5%-WATER - 50 ML IVPB ONE (15:41)
[2021-01-14] MEDS ORDERED: cefTAZidime PENTAHYDRATE 1 GM VIAL (RESTRICTED TO ID) ONE (15:41)
[2021-01-14] MEDS: CEFTAZIDIME PENTAHYDRATE 1 GM in DEXTROSE 5%-WATER - 50 ML IVPB SCH (15:49)
[2021-01-14] MEDS: INSULIN (LEVEMIR) 100 UNITS/ML UNITS SQ SCH (21:28)
[2021-01-14] MEDS: ATORVASTATIN CA 80 MG TABLET (FP) PO SCH (21:28)
[2021-01-15] MEDS: INSULIN SLIDING SCALE (NOVOLOG) 1 VIAL SQ SCH ×4 (06:49→22:35)
[2021-01-15] MEDS: NEBIVOLOL 10 MG TABLET (FP) PO SCH (10:00)
[2021-01-15] MEDS: CALCIUM ACETATE 667 MG CAPSULE (FP) PO SCH ×3 (10:00→18:37)
[2021-01-15] MEDS: ASPIRIN 81 MG CHEWABLE TABLETS PO SCH (10:01)
[2021-01-15] MEDS: ALLOPURINOL 100 MG TABLET (FP) PO SCH (10:01)
[2021-01-15] MEDS: COLLAGENASE CLOSTRIDIUM HIST. 30 GRAMS TUBE TP SCH (10:01)
[2021-01-15 13:04] LABS: HEMATOCRIT 35.7 % (35.4-49); HEMOGLOBIN 11.9 GM/dL (11.7-16.9); MCH 33.1 pg (25.7-33.7); MCHC 33.2 g/dl (32.0-35.9); MEAN CELL VOLUME 99.9 fl (80-96); MEAN PLT VOLUME 8.1 fl (7.5-11.1); PLATELET COUNT 161 10^3/uL (134-434); RBC 3.58 M/mm3 (4.00-5.60); RDW 13.8 % (11.9-15.9); WHITE BLOOD COUNT 5.5 K/mm3 (4.0-10.0)
[2021-01-15 13:25] LABS: CHLORIDE 102 mmol/L (98-107); SODIUM 141 mmol/L (136-145)
[2021-01-15 13:26] LABS: ANION GAP 13 MMOL/L (8-16); BLOOD UREA NITROGEN 58.2 mg/dL (7-18); CALCIUM 7.9 mg/dL (8.5-10.1); CO2 25 mmol/L (21-32); GLUCOSE,RANDOM 246 mg/dL (74-106)
[2021-01-15 13:30] LABS: CREATININE 9.3 mg/dL (0.55-1.3)
[2021-01-15] MEDS ORDERED: cefTAZidime PENTAHYDRATE 1 GM VIAL (RESTRICTED TO ID) ONE (14:28)
[2021-01-15] MEDS ORDERED: DEXTROSE 5%-WATER - 50 ML IVPB ONE (14:28)
[2021-01-15] MEDS: CEFTAZIDIME PENTAHYDRATE 1 GM in DEXTROSE 5%-WATER - 50 ML IVPB SCH (16:05)
[2021-01-15] MEDS: ATORVASTATIN CA 80 MG TABLET (FP) PO SCH (21:37)
[2021-01-15] MEDS ORDERED: INSULIN (NOVOLOG) ASPART 100 UNITS/ML 10ML VIAL ONE (21:46)
[2021-01-16] MEDS: INSULIN (LEVEMIR) 100 UNITS/ML UNITS SQ SCH (00:40)
[2021-01-16] MEDS: INSULIN SLIDING SCALE (NOVOLOG) 1 VIAL SQ SCH ×4 (06:17→21:48)
[2021-01-16] MEDS ORDERED: HEPARIN NA (PORCINE) 5,000 UNITS/ML 1ML VIAL ONE (07:18)
[2021-01-16] MEDS ORDERED: LIDOCAINE HCL 1%, 10 MG/ML (20ML VIAL) ONE (07:18)
[2021-01-16] MEDS: CALCIUM ACETATE 667 MG CAPSULE (FP) PO SCH ×3 (08:16→17:32)
[2021-01-16] MEDS ORDERED: PROPOFOL 20 ML ONE (09:14)
[2021-01-16] MEDS ORDERED: LIDOCAINE HCL 1%, 10 MG/ML (20ML VIAL) INF ONE (09:23)
[2021-01-16] MEDS ORDERED: ONDANSETRON 4 MG/2 ML VIAL IVPUSH PRN ×2 (09:49→10:06)
[2021-01-16] MEDS ORDERED: SODIUM CHLORIDE 250 ML IV PRN ×2 (10:06→17:23)
[2021-01-16] MEDS ORDERED: ACETAMINOPHEN 325 MG TABLET (FP) PO PRN (10:06)
[2021-01-16] MEDS: NEBIVOLOL 10 MG TABLET (FP) PO SCH (12:47)
[2021-01-16] MEDS: APIXABAN 5 MG TABLET PO SCH ×2 (12:47→21:40)
[2021-01-16] MEDS: ALLOPURINOL 100 MG TABLET (FP) PO SCH (12:47)
[2021-01-16] MEDS: COLLAGENASE CLOSTRIDIUM HIST. 30 GRAMS TUBE TP SCH (12:47)
[2021-01-16] MEDS ORDERED: ALLOPURINOL 100 MG TABLET (FP) PO ONE (13:00)
[2021-01-16] MEDS ORDERED: NEBIVOLOL 10 MG TABLET (FP) PO ONE (13:00)
[2021-01-16] MEDS ORDERED: PT OWN MED DRAWER 7, Y5N ONE (13:55)
[2021-01-16] MEDS ORDERED: cefTAZidime PENTAHYDRATE 1 GM VIAL (RESTRICTED TO ID) ONE (16:05)
[2021-01-16] MEDS ORDERED: DEXTROSE 5%-WATER - 50 ML IVPB ONE (16:06)
[2021-01-16] MEDS: CEFTAZIDIME PENTAHYDRATE 1 GM in DEXTROSE 5%-WATER - 50 ML IVPB SCH (16:10)
[2021-01-16] MEDS ORDERED: INSULIN (LEVEMIR) 100 UNITS/ML UNITS SQ SCH (22:00)
[2021-01-16] MEDS ORDERED: ATORVASTATIN CA 80 MG TABLET (FP) PO SCH (22:00)
[2021-01-17] MEDS: INSULIN SLIDING SCALE (NOVOLOG) 1 VIAL SQ SCH ×2 (06:03→13:18)
[2021-01-17] MEDS: CALCIUM ACETATE 667 MG CAPSULE (FP) PO SCH ×2 (08:36→13:21)
[2021-01-17] MEDS ORDERED: ASPIRIN 81 MG CHEWABLE TABLETS PO SCH (10:00)
[2021-01-17] MEDS ORDERED: COLLAGENASE CLOSTRIDIUM HIST. 30 GRAMS TUBE TP SCH (10:00)
[2021-01-17] MEDS ORDERED: ALLOPURINOL 100 MG TABLET (FP) PO SCH (10:00)
[2021-01-17] MEDS ORDERED: NEBIVOLOL 10 MG TABLET (FP) PO SCH (10:00)
[2021-01-17 10:23] LABS: HEMATOCRIT 36.4 % (35.4-49); MCH 32.9 pg (25.7-33.7); MCHC 33.1 g/dl (32.0-35.9); MEAN CELL VOLUME 99.6 fl (80-96); MEAN PLT VOLUME 8.5 fl (7.5-11.1); PLATELET COUNT 153 10^3/uL (134-434); RBC 3.66 M/mm3 (4.00-5.60); RDW 13.7 % (11.9-15.9); WHITE BLOOD COUNT 4.8 K/mm3 (4.0-10.0)
[2021-01-17] MEDS ORDERED: cefTAZidime PENTAHYDRATE 1 GM VIAL (RESTRICTED TO ID) ONE (10:29)
[2021-01-17] MEDS ORDERED: DEXTROSE 5%-WATER - 50 ML IVPB ONE (10:29)
[2021-01-17 10:41] LABS: CALCIUM 8.5 mg/dL (8.5-10.1); CHLORIDE 96 mmol/L (98-107); SODIUM 136 mmol/L (136-145)
[2021-01-17 10:42] LABS: ANION GAP 12 MMOL/L (8-16); BLOOD UREA NITROGEN 61.2 mg/dL (7-18); CO2 28 mmol/L (21-32); GLUCOSE,RANDOM 255 mg/dL (74-106)
[2021-01-17 10:47] LABS: CREATININE 9.4 mg/dL (0.55-1.3)
[2021-01-17] MEDS: CEFTAZIDIME PENTAHYDRATE 1 GM in DEXTROSE 5%-WATER - 50 ML IVPB SCH (12:15)
[2021-01-17] MEDS: APIXABAN 5 MG TABLET PO SCH (13:22)
[2021-01-17] MEDS ORDERED: PT OWN MED DRAWER 7, Y5N ONE (13:25)
[2021-01-17 14:12] VITALS: BP 120/63; PULSE 80; TEMP 98.2
== END 2021-01-17 14:09 | disposition home or self-care (01) | DRG 299 ==
LOC: JER 12:49 → JERBED 20:05 → J5S 22:34
PROVIDERS: ADMIT Internal Medicine; ATTEND Internal Medicine
PROC: 5A1D70Z Performance of Urinary Filtration, Intermittent, Less than 6 Hours Per Day (ICD-10-PCS; principal; 2021-01-15)
PROC: 5A1D70Z Performance of Urinary Filtration, Intermittent, Less than 6 Hours Per Day (ICD-10-PCS; 2021-01-16)
DX: E11.51 Type 2 diabetes mellitus with diabetic peripheral angiopathy without gangrene (principal); I12.0 Hypertensive chronic kidney disease with stage 5 chronic kidney disease or end stage renal disease; E11.69 Type 2 diabetes mellitus with other specified complication; E11.621 Type 2 diabetes mellitus with foot ulcer; N18.6 End stage renal disease; M86.172 Other acute osteomyelitis, left ankle and foot; E11.22 Type 2 diabetes mellitus with diabetic chronic kidney disease; N25.0 Renal osteodystrophy; E78.5 Hyperlipidemia, unspecified; I73.9 Peripheral vascular disease, unspecified; Z87.891 Personal history of nicotine dependence; Z99.2 Dependence on renal dialysis; Z79.4 Long term (current) use of insulin
CPT/HCPCS: 36415; 71046-TC-FY; 73721-LT-TC; 76000-TC-FY; 80048; 80053; 82962; 83036; 83605; 84100; 85025; 85027; 85610; 86140; 86803; 87040; 87340; 93005; 93010; 94760; 99285-25; C9803; G0463-25; J1644; U0003; U0005

== ENCOUNTER 2021-03-14 14:27 | Inpatient (IN) | payer OTHER ==
[2021-03-14 17:02] LABS: BASO % 0.2 % (0-2.0); EOS % 1.3 % (0-4.5); HEMATOCRIT 36.8 % (35.4-49); HEMOGLOBIN 12.2 GM/dL (11.7-16.9); LYMPH % 16.2 % (8-40); MCH 34.1 pg (25.7-33.7); MCHC 33.1 g/dl (32.0-35.9); MEAN CELL VOLUME 102.8 fl (80-96); MEAN PLT VOLUME 7.9 fl (7.5-11.1); MONO % 6.9 % (3.8-10.2); NEUT % 75.4 % (42.8-82.8); PLATELET COUNT 240 10^3/uL (134-434); RBC 3.58 M/mm3 (4.00-5.60); RDW 14.1 % (11.9-15.9)
[2021-03-14 17:07] LABS: INR 0.96 (0.83-1.09); PROTHROMBIN TIME (PATIENT) 11.6 SEC (9.7-13.0)
[2021-03-14 17:09] LABS: ACTIVATED PTT 33.4 SECONDS (25.2-36.5)
[2021-03-14 17:14] LABS: CHLORIDE 101 mmol/L (98-107); SODIUM 137 mmol/L (136-145)
[2021-03-14 17:17] LABS: ANION GAP 12 MMOL/L (8-16); BLOOD UREA NITROGEN 25.6 mg/dL (7-18); CALCIUM 8.4 mg/dL (8.5-10.1); CO2 25 mmol/L (21-32); GLUCOSE,RANDOM 234 mg/dL (74-106)
[2021-03-14 17:20] LABS: PHOSPHOROUS 2.8 mg/dL (2.5-4.9); SGOT/AST 20 U/L (15-37); SGPT/ALT 20 U/L (13-61)
[2021-03-14 17:22] LABS: BILIRUBIN,TOTAL 0.7 mg/dL (0.2-1)
[2021-03-14 17:23] LABS: ALK PHOS 128 U/L (45-117)
[2021-03-14] MEDS: ATORVASTATIN CA 80 MG TABLET (FP) PO SCH (21:41)
[2021-03-14] MEDS ORDERED: CALCIUM ACETATE 667 MG CAPSULE (FP) PO SCH (22:00)
[2021-03-14 23:22] VITALS: BMI 25.3
[2021-03-15] MEDS: INSULIN SLIDING SCALE (NOVOLOG) 1 VIAL SQ SCH ×4 (06:35→21:51)
[2021-03-15 09:37] LABS: BASO % 0.4 % (0-2.0); HEMATOCRIT 33.9 % (35.4-49); HEMOGLOBIN 11.5 GM/dL (11.7-16.9); LYMPH % 28.8 % (8-40); MCH 34.4 pg (25.7-33.7); MCHC 33.8 g/dl (32.0-35.9); MEAN CELL VOLUME 101.6 fl (80-96); MEAN PLT VOLUME 7.7 fl (7.5-11.1); MONO % 8.6 % (3.8-10.2); NEUT % 60.2 % (42.8-82.8); PLATELET COUNT 226 10^3/uL (134-434); RBC 3.34 M/mm3 (4.00-5.60); RDW 14.1 % (11.9-15.9); WHITE BLOOD COUNT 5.2 K/mm3 (4.0-10.0)
[2021-03-15] MEDS ORDERED: PT OWN MED DRAWER 7, Y5N ONE (10:01)
[2021-03-15 10:10] LABS: BLOOD UREA NITROGEN 36.4 mg/dL (7-18); CALCIUM 8.5 mg/dL (8.5-10.1)
[2021-03-15 10:14] LABS: CREATININE 6.6 mg/dL (0.55-1.3)
[2021-03-15] MEDS: GABAPENTIN 100 MG CAPSULE PO SCH (10:25)
[2021-03-15] MEDS: CALCIUM ACETATE 667 MG CAPSULE (FP) PO SCH ×3 (10:25→17:49)
[2021-03-15] MEDS: NEBIVOLOL 10 MG TABLET (FP) PO SCH (12:13)
[2021-03-15] MEDS: AMOX TR/POT CLAV 500MG/125MG TABLETS (FP) PO SCH (17:48)
[2021-03-15] MEDS: ATORVASTATIN CA 80 MG TABLET (FP) PO SCH (21:47)
[2021-03-15] MEDS: INSULIN (LEVEMIR) 100 UNITS/ML UNITS SQ SCH (21:50)
[2021-03-16] MEDS: INSULIN SLIDING SCALE (NOVOLOG) 1 VIAL SQ SCH ×4 (06:23→22:24)
[2021-03-16] MEDS ORDERED: PT OWN MED DRAWER 7, Y5N ONE ×2 (10:04→18:42)
[2021-03-16] MEDS: GABAPENTIN 100 MG CAPSULE PO SCH (10:11)
[2021-03-16] MEDS: CALCIUM ACETATE 667 MG CAPSULE (FP) PO SCH ×3 (10:11→17:36)
[2021-03-16] MEDS: NEBIVOLOL 10 MG TABLET (FP) PO SCH (10:12)
[2021-03-16] MEDS: ALLOPURINOL 100 MG TABLET (FP) PO SCH (10:12)
[2021-03-16] MEDS: AMOX TR/POT CLAV 500MG/125MG TABLETS (FP) PO SCH ×2 (10:12→17:36)
[2021-03-16 10:36] LABS: BASO % 0.3 % (0-2.0); EOS % 1.9 % (0-4.5); HEMATOCRIT 34.1 % (35.4-49); HEMOGLOBIN 11.4 GM/dL (11.7-16.9); LYMPH % 22.6 % (8-40); MCHC 33.4 g/dl (32.0-35.9); MEAN CELL VOLUME 101.7 fl (80-96); MONO % 6.2 % (3.8-10.2); PLATELET COUNT 221 10^3/uL (134-434); RBC 3.35 M/mm3 (4.00-5.60); RDW 14.3 % (11.9-15.9); WHITE BLOOD COUNT 5.8 K/mm3 (4.0-10.0)
[2021-03-16 10:57] LABS: CHLORIDE 104 mmol/L (98-107); SODIUM 138 mmol/L (136-145)
[2021-03-16 11:00] LABS: ANION GAP 12 MMOL/L (8-16); BLOOD UREA NITROGEN 54.7 mg/dL (7-18); CALCIUM 8.6 mg/dL (8.5-10.1); CO2 23 mmol/L (21-32); GLUCOSE,RANDOM 175 mg/dL (74-106)
[2021-03-16 11:10] LABS: CREATININE 8.6 mg/dL (0.55-1.3)
[2021-03-16] MEDS: ACETAMINOPHEN 325 MG TABLET (FP) PO PRN (13:34)
[2021-03-16] MEDS ORDERED: SODIUM CHLORIDE 250 ML IV PRN (14:07)
[2021-03-16] MEDS: INSULIN (LEVEMIR) 100 UNITS/ML UNITS SQ SCH (22:23)
[2021-03-16] MEDS: ATORVASTATIN CA 80 MG TABLET (FP) PO SCH (22:23)
[2021-03-17] MEDS: INSULIN SLIDING SCALE (NOVOLOG) 1 VIAL SQ SCH ×4 (06:02→22:12)
[2021-03-17] MEDS: AMOX TR/POT CLAV 500MG/125MG TABLETS (FP) PO SCH ×2 (08:46→18:05)
[2021-03-17] MEDS: CALCIUM ACETATE 667 MG CAPSULE (FP) PO SCH ×3 (08:47→18:05)
[2021-03-17] MEDS ORDERED: HEPARIN NA (PORCINE) 5,000 UNITS/ML 1ML VIAL IVPUSH ONE (10:30)
[2021-03-17 11:21] LABS: HEMATOCRIT 32.1 % (35.4-49); HEMOGLOBIN 10.9 GM/dL (11.7-16.9); MCH 34.6 pg (25.7-33.7); MCHC 33.8 g/dl (32.0-35.9); MEAN CELL VOLUME 102.3 fl (80-96); PLATELET COUNT 207 10^3/uL (134-434); RBC 3.14 M/mm3 (4.00-5.60); WHITE BLOOD COUNT 5.5 K/mm3 (4.0-10.0)
[2021-03-17 11:40] LABS: CHLORIDE 103 mmol/L (98-107); SODIUM 138 mmol/L (136-145)
[2021-03-17 11:42] LABS: ANION GAP 15 MMOL/L (8-16); CALCIUM 8.4 mg/dL (8.5-10.1); CO2 20 mmol/L (21-32); GLUCOSE,RANDOM 139 mg/dL (74-106)
[2021-03-17 11:53] LABS: BLOOD UREA NITROGEN 81.1 mg/dL (7-18); CREATININE 9.5 mg/dL (0.55-1.3)
[2021-03-17] MEDS: GABAPENTIN 100 MG CAPSULE PO SCH (14:04)
[2021-03-17] MEDS: ALLOPURINOL 100 MG TABLET (FP) PO SCH (14:04)
[2021-03-17] MEDS: CALCITRIOL 0.25 MCG CAPSULE (FP) PO SCH (14:04)
[2021-03-17] MEDS: NEBIVOLOL 10 MG TABLET (FP) PO SCH (14:05)
[2021-03-17] MEDS: ACETAMINOPHEN 325 MG TABLET (FP) PO PRN (16:05)
[2021-03-17] MEDS: ATORVASTATIN CA 80 MG TABLET (FP) PO SCH (22:12)
[2021-03-17] MEDS: INSULIN (LEVEMIR) 100 UNITS/ML UNITS SQ SCH (22:12)
[2021-03-18] MEDS: ACETAMINOPHEN 325 MG TABLET (FP) PO PRN ×2 (01:48→16:58)
[2021-03-18] MEDS: INSULIN SLIDING SCALE (NOVOLOG) 1 VIAL SQ SCH ×4 (06:51→22:31)
[2021-03-18 09:21] LABS: BASO % 0.5 % (0-2.0); HEMATOCRIT 35.3 % (35.4-49); HEMOGLOBIN 11.8 GM/dL (11.7-16.9); LYMPH % 28.4 % (8-40); MCH 34.3 pg (25.7-33.7); MCHC 33.5 g/dl (32.0-35.9); MEAN CELL VOLUME 102.3 fl (80-96); MEAN PLT VOLUME 7.7 fl (7.5-11.1); MONO % 7.3 % (3.8-10.2); NEUT % 60.8 % (42.8-82.8); PLATELET COUNT 222 10^3/uL (134-434); RBC 3.45 M/mm3 (4.00-5.60); RDW 13.9 % (11.9-15.9); WHITE BLOOD COUNT 5.6 K/mm3 (4.0-10.0)
[2021-03-18] MEDS ORDERED: PT OWN MED DRAWER 7, Y5N ONE (09:22)
[2021-03-18] MEDS: NEBIVOLOL 10 MG TABLET (FP) PO SCH (09:27)
[2021-03-18] MEDS: CALCITRIOL 0.25 MCG CAPSULE (FP) PO SCH (09:27)
[2021-03-18] MEDS: GABAPENTIN 100 MG CAPSULE PO SCH (09:27)
[2021-03-18] MEDS: ALLOPURINOL 100 MG TABLET (FP) PO SCH (09:27)
[2021-03-18] MEDS: AMOX TR/POT CLAV 500MG/125MG TABLETS (FP) PO SCH ×2 (09:28→16:59)
[2021-03-18] MEDS: CALCIUM ACETATE 667 MG CAPSULE (FP) PO SCH ×3 (09:28→17:00)
[2021-03-18 10:06] LABS: CALCIUM 8.5 mg/dL (8.5-10.1)
[2021-03-18 10:09] LABS: CREATININE 7.1 mg/dL (0.55-1.3)
[2021-03-18 10:54] LABS: BLOOD UREA NITROGEN 51.6 mg/dL (7-18)
[2021-03-18] MEDS ORDERED: SODIUM CHLORIDE 250 ML IV PRN (14:07)
[2021-03-18] MEDS: ATORVASTATIN CA 80 MG TABLET (FP) PO SCH (22:29)
[2021-03-18] MEDS: INSULIN (LEVEMIR) 100 UNITS/ML UNITS SQ SCH (22:31)
[2021-03-19] MEDS: INSULIN SLIDING SCALE (NOVOLOG) 1 VIAL SQ SCH ×4 (06:30→22:34)
[2021-03-19] MEDS: AMOX TR/POT CLAV 500MG/125MG TABLETS (FP) PO SCH ×2 (07:53→17:49)
[2021-03-19] MEDS: CALCIUM ACETATE 667 MG CAPSULE (FP) PO SCH ×3 (07:53→17:48)
[2021-03-19] MEDS ORDERED: EPOETIN ALFA-EPBX 10,000 UNIT/ML VIAL IVPUSH ONE (08:00)
[2021-03-19] MEDS: GABAPENTIN 100 MG CAPSULE PO SCH (09:29)
[2021-03-19] MEDS: CALCITRIOL 0.25 MCG CAPSULE (FP) PO SCH (09:29)
[2021-03-19] MEDS: ALLOPURINOL 100 MG TABLET (FP) PO SCH (09:29)
[2021-03-19] MEDS: NEBIVOLOL 10 MG TABLET (FP) PO SCH (09:30)
[2021-03-19] MEDS ORDERED: LIDOCAINE HCL 1%, 10 MG/ML (20ML VIAL) ONE (13:28)
[2021-03-19] MEDS ORDERED: HEPARIN NA (PORCINE) 5,000 UNITS/ML 1ML VIAL ONE ×2 (13:28→14:57)
[2021-03-19] MEDS ORDERED: MIDAZOLAM HCL 2 MG/2 ML SINGLE DOSE VIAL ONE (14:01)
[2021-03-19] MEDS ORDERED: PROPOFOL 20 ML ONE (14:01)
[2021-03-19] MEDS ORDERED: ceFAZolin SODIUM 1 GM VIAL ONE (14:41)
[2021-03-19] MEDS ORDERED: LIDOCAINE HCL 1%, 10 MG/ML (20ML VIAL) PNB ONE (14:45)
[2021-03-19] MEDS ORDERED: ONDANSETRON 4 MG/2 ML VIAL IVPUSH PRN ×2 (15:01→16:22)
[2021-03-19] MEDS ORDERED: SODIUM CHLORIDE 250 ML IV PRN (16:22)
[2021-03-19] MEDS ORDERED: ACETAMINOPHEN 325 MG TABLET (FP) PO PRN (16:22)
[2021-03-19 19:19] LABS: HEMATOCRIT 30.9 % (35.4-49); HEMOGLOBIN 10.5 GM/dL (11.7-16.9); MCH 33.9 pg (25.7-33.7); MCHC 33.9 g/dl (32.0-35.9); MEAN CELL VOLUME 100.1 fl (80-96); PLATELET COUNT 185 10^3/uL (134-434); RBC 3.09 M/mm3 (4.00-5.60); WHITE BLOOD COUNT 4.5 K/mm3 (4.0-10.0)
[2021-03-19 19:44] LABS: CHLORIDE 102 mmol/L (98-107); SODIUM 138 mmol/L (136-145)
[2021-03-19 19:47] LABS: ANION GAP 11 MMOL/L (8-16); BLOOD UREA NITROGEN 72.4 mg/dL (7-18); CALCIUM 8.5 mg/dL (8.5-10.1); CO2 25 mmol/L (21-32)
[2021-03-19 19:48] LABS: GLUCOSE,RANDOM 224 mg/dL (74-106)
[2021-03-19 19:51] LABS: PHOSPHOROUS 4.8 mg/dL (2.5-4.9)
[2021-03-19 20:01] LABS: CREATININE 8.7 mg/dL (0.55-1.3)
[2021-03-19] MEDS ORDERED: INSULIN (LEVEMIR) 100 UNITS/ML UNITS SQ SCH (22:00)
[2021-03-19] MEDS ORDERED: ATORVASTATIN CA 80 MG TABLET (FP) PO SCH (22:00)
[2021-03-19] MEDS: APIXABAN 5 MG TABLET PO SCH (22:28)
[2021-03-20] MEDS: INSULIN SLIDING SCALE (NOVOLOG) 1 VIAL SQ SCH ×2 (06:16→11:24)
[2021-03-20] MEDS ORDERED: COLLAGENASE CLOSTRIDIUM HIST. 30 GRAMS TUBE TP SCH (10:00)
[2021-03-20] MEDS ORDERED: NEBIVOLOL 10 MG TABLET (FP) PO SCH (10:00)
[2021-03-20] MEDS ORDERED: ALLOPURINOL 100 MG TABLET (FP) PO SCH (10:00)
[2021-03-20] MEDS ORDERED: GABAPENTIN 100 MG CAPSULE PO SCH (10:00)
[2021-03-20] MEDS ORDERED: CALCITRIOL 0.25 MCG CAPSULE (FP) PO SCH (10:00)
[2021-03-20 10:02] LABS: BASO % 0.5 % (0-2.0); EOS % 2.1 % (0-4.5); HEMATOCRIT 32.7 % (35.4-49); HEMOGLOBIN 11.2 GM/dL (11.7-16.9); LYMPH % 24.7 % (8-40); MCH 34.2 pg (25.7-33.7); MCHC 34.2 g/dl (32.0-35.9); MEAN PLT VOLUME 7.7 fl (7.5-11.1); MONO % 4.9 % (3.8-10.2); NEUT % 67.8 % (42.8-82.8); PLATELET COUNT 198 10^3/uL (134-434); RBC 3.27 M/mm3 (4.00-5.60); RDW 13.7 % (11.9-15.9); WHITE BLOOD COUNT 5.9 K/mm3 (4.0-10.0)
[2021-03-20] MEDS: CALCIUM ACETATE 667 MG CAPSULE (FP) PO SCH ×2 (10:07→11:47)
[2021-03-20] MEDS: AMOX TR/POT CLAV 500MG/125MG TABLETS (FP) PO SCH (10:08)
[2021-03-20] MEDS: APIXABAN 5 MG TABLET PO SCH (10:08)
[2021-03-20] MEDS ORDERED: PT OWN MED DRAWER 7, Y5N ONE ×2 (10:15→14:18)
[2021-03-20 10:18] LABS: CALCIUM 8.7 mg/dL (8.5-10.1)
[2021-03-20 10:22] LABS: CREATININE 5.9 mg/dL (0.55-1.3)
[2021-03-20 10:41] LABS: BLOOD UREA NITROGEN 33.5 mg/dL (7-18)
[2021-03-20 15:43] VITALS: BP 135/54; PULSE 72; TEMP 98.3
== END 2021-03-20 15:49 | disposition home or self-care (01) | DRG 299 ==
LOC: JER 14:27 → JERBED 17:48 → J5S 20:18
PROVIDERS: ADMIT Internal Medicine; ATTEND Internal Medicine
PROC: B41GZZZ Fluoroscopy of Left Lower Extremity Arteries (ICD-10-PCS; 2021-03-19)
PROC: 5A1D70Z Performance of Urinary Filtration, Intermittent, Less than 6 Hours Per Day (ICD-10-PCS; 2021-03-19)
PROC: 5A1D70Z Performance of Urinary Filtration, Intermittent, Less than 6 Hours Per Day (ICD-10-PCS; 2021-03-19)
PROC: B41DZZZ Fluoroscopy of Aorta and Bilateral Lower Extremity Arteries (ICD-10-PCS; principal; 2021-03-19 14:30)
DX: E11.52 Type 2 diabetes mellitus with diabetic peripheral angiopathy with gangrene (principal); N18.6 End stage renal disease; I96 Gangrene, not elsewhere classified; I12.0 Hypertensive chronic kidney disease with stage 5 chronic kidney disease or end stage renal disease; L97.528 Non-pressure chronic ulcer of other part of left foot with other specified severity; E11.621 Type 2 diabetes mellitus with foot ulcer; E11.22 Type 2 diabetes mellitus with diabetic chronic kidney disease; Z99.2 Dependence on renal dialysis; D63.1 Anemia in chronic kidney disease; N25.0 Renal osteodystrophy; E78.5 Hyperlipidemia, unspecified; E11.42 Type 2 diabetes mellitus with diabetic polyneuropathy; I95.9 Hypotension, unspecified; Z89.421 Acquired absence of other right toe(s); Z79.4 Long term (current) use of insulin
CPT/HCPCS: 36415; 71045-TC-FY; 73630-TC-LT; 73718-TC-LT; 76000-TC-FY; 80048; 80053; 82550; 82962; 83735; 84100; 84484; 85025; 85027; 85610; 85730; 86803; 86850; 86900; 86901; 87340; 93005; 93010; 93306-TC; 94760; 99285-25; C9803; G0277; G0463-25; J1644; U0003; U0005

== ENCOUNTER 2021-04-14 08:33 | Inpatient (IN) | payer OTHER ==
[2021-04-14] MEDS ORDERED: VANCOMYCIN HCL 1,500 MG in DEXTROSE 5%-WATER - 500 ML IVPB ONE (09:04)
[2021-04-14 10:27] LABS: BASO % 0.3 % (0-2.0); EOS % 1.9 % (0-4.5); HEMATOCRIT 28.7 % (35.4-49); HEMOGLOBIN 9.8 GM/dL (11.7-16.9); LYMPH % 10.3 % (8-40); MCH 34.6 pg (25.7-33.7); MCHC 34.1 g/dl (32.0-35.9); MEAN CELL VOLUME 101.6 fl (80-96); NEUT % 83.5 % (42.8-82.8); PLATELET COUNT 215 10^3/uL (134-434); RBC 2.82 M/mm3 (4.00-5.60); RDW 13.4 % (11.9-15.9); WHITE BLOOD COUNT 5.9 K/mm3 (4.0-10.0)
[2021-04-14 10:36] LABS: INR 0.98 (0.83-1.09)
[2021-04-14 10:39] LABS: ACTIVATED PTT 38.7 SECONDS (25.2-36.5)
[2021-04-14 10:46] LABS: CHLORIDE 101 mmol/L (98-107); SODIUM 137 mmol/L (136-145)
[2021-04-14 10:48] LABS: ALBUMIN 3.6 g/dl (3.4-5.0); ANION GAP 12 MMOL/L (8-16); CALCIUM 8.7 mg/dL (8.5-10.1); CO2 24 mmol/L (21-32); GLUCOSE,RANDOM 253 mg/dL (74-106)
[2021-04-14 10:51] LABS: SGOT/AST 15 U/L (15-37); SGPT/ALT 15 U/L (13-61)
[2021-04-14 10:52] LABS: PHOSPHOROUS 5.8 mg/dL (2.5-4.9)
[2021-04-14 10:53] LABS: BILIRUBIN,TOTAL 0.6 mg/dL (0.2-1); TOT PROT 7.4 g/dl (6.4-8.2)
[2021-04-14 10:54] LABS: ALK PHOS 111 U/L (45-117)
[2021-04-14 11:01] LABS: CREATININE 9.7 mg/dL (0.55-1.3)
[2021-04-14] MEDS ORDERED: INSULIN REGULAR HUMAN 100 UNITS/ML *VIAL SQ ONE (11:40)
[2021-04-14] MEDS ORDERED: SODIUM CHLORIDE 250 ML IV PRN ×2 (12:12→14:31)
[2021-04-14] MEDS ORDERED: SODIUM CHLORIDE 1,000 ML IV SCH (14:00)
[2021-04-14] MEDS ORDERED: CALCIUM ACETATE 667 MG CAPSULE (FP) PO SCH (14:00)
[2021-04-14] MEDS ORDERED: EPOETIN ALFA-EPBX 3,000 UNIT/ML VIAL IVPUSH ONE (15:00)
[2021-04-14 15:32] LABS: PHOSPHOROUS 4.9 mg/dL (2.5-4.9)
[2021-04-14] MEDS: INSULIN SLIDING SCALE (NOVOLOG) 1 VIAL SQ SCH ×2 (18:47→21:39)
[2021-04-14] MEDS: CALCIUM ACETATE 667 MG CAPSULE (FP) PO SCH (18:54)
[2021-04-14] MEDS ORDERED: ACETAMINOPHEN 500 MG TABLET (FP) PO PRN (20:53)
[2021-04-14] MEDS ORDERED: ACETAMINOPHEN 325 MG TABLET (FP) PO PRN (21:01)
[2021-04-14] MEDS: ATORVASTATIN CA 80 MG TABLET (FP) PO SCH (21:37)
[2021-04-14] MEDS: INSULIN (LEVEMIR) 100 UNITS/ML UNITS SQ SCH (21:38)
[2021-04-14] MEDS ORDERED: APIXABAN 5 MG TABLET PO SCH (22:00)
[2021-04-15] MEDS ORDERED: PIPERACILLIN/TAZOBACTAM 2.25 GM VIAL IVPB ONE ×2 (00:53→09:15)
[2021-04-15] MEDS ORDERED: DEXTROSE 5%-WATER - 50 ML IVPB ONE ×2 (00:54→09:15)
[2021-04-15] MEDS: PIPERACILLIN/TAZOB 2.25 GM 2.25 GM in DEXTROSE 5%-WATER - 50 ML IVPB SCH ×2 (01:33→09:39)
[2021-04-15] MEDS: INSULIN SLIDING SCALE (NOVOLOG) 1 VIAL SQ SCH ×4 (06:22→21:14)
[2021-04-15 07:27] LABS: BASO % 0.5 % (0-2.0); EOS % 3.6 % (0-4.5); HEMATOCRIT 26.2 % (35.4-49); LYMPH % 31.9 % (8-40); MCH 34.1 pg (25.7-33.7); MCHC 34.3 g/dl (32.0-35.9); MEAN CELL VOLUME 99.5 fl (80-96); MEAN PLT VOLUME 7.6 fl (7.5-11.1); MONO % 7.3 % (3.8-10.2); NEUT % 56.7 % (42.8-82.8); PLATELET COUNT 186 10^3/uL (134-434); RBC 2.63 M/mm3 (4.00-5.60); RDW 13.8 % (11.9-15.9); WHITE BLOOD COUNT 4.1 K/mm3 (4.0-10.0)
[2021-04-15 07:47] LABS: MAGNESIUM 1.9 mg/dL (1.8-2.4)
[2021-04-15 07:50] LABS: CREATININE 6.1 mg/dL (0.55-1.3); PHOSPHOROUS 4.3 mg/dL (2.5-4.9)
[2021-04-15 07:52] LABS: BILIRUBIN,TOTAL 0.6 mg/dL (0.2-1); TOT PROT 6.2 g/dl (6.4-8.2)
[2021-04-15 07:53] LABS: BLOOD UREA NITROGEN 36.9 mg/dL (7-18)
[2021-04-15] MEDS ORDERED: DOCUSATE SODIUM 100 MG CAPSULE (FP) PO PRN (08:38)
[2021-04-15] MEDS: PANTOPRAZOLE 40 MG TABLET PO SCH (09:22)
[2021-04-15] MEDS: TAMSULOSIN HCL 0.4 MG CAP PO SCH (09:22)
[2021-04-15] MEDS: NEBIVOLOL 10 MG TABLET (FP) PO SCH (09:23)
[2021-04-15] MEDS: CALCIUM ACETATE 667 MG CAPSULE (FP) PO SCH ×3 (09:23→19:07)
[2021-04-15] MEDS: ASPIRIN 81 MG CHEWABLE TABLETS PO SCH (09:23)
[2021-04-15] MEDS: FINASTERIDE 5 MG TABLET (FP) PO SCH (09:24)
[2021-04-15] MEDS: CALCITRIOL 0.25 MCG CAPSULE (FP) PO SCH (09:24)
[2021-04-15] MEDS: ACETAMINOPHEN WITH CODEINE 300MG/30MG TABLET PO PRN (10:42)
[2021-04-15] MEDS ORDERED: SODIUM CHLORIDE 250 ML IV PRN (14:12)
[2021-04-15] MEDS ORDERED: PT OWN MED DRAWER 7, Y5N ONE (20:41)
[2021-04-15] MEDS: ATORVASTATIN CA 80 MG TABLET (FP) PO SCH (21:12)
[2021-04-15] MEDS: PHENYLEPHRINE HCL/COCOA BUTTER SUPPOSITORY RC SCH (21:13)
[2021-04-15] MEDS: INSULIN (LEVEMIR) 100 UNITS/ML UNITS SQ SCH (21:13)
[2021-04-16] MEDS: INSULIN SLIDING SCALE (NOVOLOG) 1 VIAL SQ SCH ×4 (06:25→21:42)
[2021-04-16 07:04] LABS: BASO % 0.3 % (0-2.0); EOS % 3.9 % (0-4.5); HEMATOCRIT 25.8 % (35.4-49); HEMOGLOBIN 8.7 GM/dL (11.7-16.9); LYMPH % 29.3 % (8-40); MCH 34.3 pg (25.7-33.7); MCHC 33.9 g/dl (32.0-35.9); MEAN CELL VOLUME 101.4 fl (80-96); MEAN PLT VOLUME 8.1 fl (7.5-11.1); NEUT % 58.5 % (42.8-82.8); PLATELET COUNT 172 10^3/uL (134-434); RBC 2.54 M/mm3 (4.00-5.60); RDW 13.6 % (11.9-15.9); WHITE BLOOD COUNT 4.3 K/mm3 (4.0-10.0)
[2021-04-16 07:19] LABS: CHLORIDE 105 mmol/L (98-107); SODIUM 141 mmol/L (136-145)
[2021-04-16 07:24] LABS: CALCIUM 8.4 mg/dL (8.5-10.1)
[2021-04-16 07:25] LABS: ANION GAP 8 MMOL/L (8-16); BLOOD UREA NITROGEN 49.8 mg/dL (7-18); CO2 28 mmol/L (21-32); GLUCOSE,RANDOM 86 mg/dL (74-106)
[2021-04-16 07:28] LABS: PHOSPHOROUS 4.5 mg/dL (2.5-4.9)
[2021-04-16 07:30] LABS: CREATININE 7.6 mg/dL (0.55-1.3)
[2021-04-16] MEDS ORDERED: EPOETIN ALFA-EPBX 10,000 UNIT/ML VIAL IVPUSH ONE (10:00)
[2021-04-16] MEDS: CALCIUM ACETATE 667 MG CAPSULE (FP) PO SCH ×3 (10:02→17:20)
[2021-04-16] MEDS: PIPERACILLIN/TAZOB 2.25 GM 2.25 GM in DEXTROSE 5%-WATER - 50 ML IVPB SCH ×2 (11:17→11:18)
[2021-04-16] MEDS: ACETAMINOPHEN WITH CODEINE 300MG/30MG TABLET PO PRN ×2 (15:07→21:44)
[2021-04-16] MEDS: CALCITRIOL 0.25 MCG CAPSULE (FP) PO SCH (15:07)
[2021-04-16] MEDS: FINASTERIDE 5 MG TABLET (FP) PO SCH (15:08)
[2021-04-16] MEDS: PANTOPRAZOLE 40 MG TABLET PO SCH (15:08)
[2021-04-16] MEDS: ASPIRIN 81 MG CHEWABLE TABLETS PO SCH (15:08)
[2021-04-16] MEDS: NEBIVOLOL 10 MG TABLET (FP) PO SCH (15:09)
[2021-04-16] MEDS: TAMSULOSIN HCL 0.4 MG CAP PO SCH (15:09)
[2021-04-16] MEDS: POLYETHYLENE GLYCOL (HEALTHYLAX) 3350 17 GM PACKET PO SCH (21:42)
[2021-04-16] MEDS: INSULIN (LEVEMIR) 100 UNITS/ML UNITS SQ SCH (21:42)
[2021-04-16] MEDS: PHENYLEPHRINE HCL/COCOA BUTTER SUPPOSITORY RC SCH (21:43)
[2021-04-16] MEDS: ATORVASTATIN CA 80 MG TABLET (FP) PO SCH (21:43)
[2021-04-17 06:38] LABS: BASO % 0.4 % (0-2.0); EOS % 3.9 % (0-4.5); HEMOGLOBIN 9.2 GM/dL (11.7-16.9); MCH 34.2 pg (25.7-33.7); MEAN CELL VOLUME 100.6 fl (80-96); MEAN PLT VOLUME 7.7 fl (7.5-11.1); MONO % 8.2 % (3.8-10.2); NEUT % 56.5 % (42.8-82.8); PLATELET COUNT 170 10^3/uL (134-434); RBC 2.68 M/mm3 (4.00-5.60); RDW 13.5 % (11.9-15.9); WHITE BLOOD COUNT 4.4 K/mm3 (4.0-10.0)
[2021-04-17] MEDS: INSULIN SLIDING SCALE (NOVOLOG) 1 VIAL SQ SCH ×4 (07:02→21:49)
[2021-04-17] MEDS ORDERED: PT OWN MED DRAWER 7, Y5N ONE ×4 (08:27→21:45)
[2021-04-17] MEDS: TAMSULOSIN HCL 0.4 MG CAP PO SCH (08:55)
[2021-04-17] MEDS: CALCIUM ACETATE 667 MG CAPSULE (FP) PO SCH ×3 (08:55→17:24)
[2021-04-17] MEDS: PANTOPRAZOLE 40 MG TABLET PO SCH (09:49)
[2021-04-17] MEDS: POLYETHYLENE GLYCOL (HEALTHYLAX) 3350 17 GM PACKET PO SCH ×2 (09:49→21:47)
[2021-04-17] MEDS: ACETAMINOPHEN WITH CODEINE 300MG/30MG TABLET PO PRN ×2 (09:49→22:08)
[2021-04-17] MEDS: NEBIVOLOL 10 MG TABLET (FP) PO SCH (09:49)
[2021-04-17] MEDS: FINASTERIDE 5 MG TABLET (FP) PO SCH (09:50)
[2021-04-17] MEDS: HEPARIN NA (PORCINE) 5,000 UNITS/ML 1ML VIAL SQ SCH ×2 (09:50→21:47)
[2021-04-17] MEDS: CALCITRIOL 0.25 MCG CAPSULE (FP) PO SCH (09:50)
[2021-04-17 10:03] LABS: INR 1.01 (0.83-1.09); PROTHROMBIN TIME (PATIENT) 12.4 SEC (9.7-13.0)
[2021-04-17 18:28] LABS: EPI CELLS 9 /uL (0-25.1); HYALINE CASTS 0 /uL (0-3.1); PH,URINE >= 9.0 (5.0-8.0); URINE APPEARANCE CLEAR; URINE BACTERIA 15 /uL (0-1359); URINE BILIRUBIN NEGATIVE (NEGATIVE); URINE COLOR YELLOW; URINE GLUCOSE (UA) TRACE (NEGATIVE); URINE KETONE NEGATIVE (NEGATIVE); URINE LEUK ESTERASE TRACE (NEGATIVE); URINE NITRITE NEGATIVE (NEGATIVE); URINE PROTEIN 2+ (NEGATIVE); URINE RBC 6 /uL (0-23.9); URINE WBC 23 /uL (0-25.8)
[2021-04-17] MEDS: ATORVASTATIN CA 80 MG TABLET (FP) PO SCH (21:47)
[2021-04-17] MEDS: INSULIN (LEVEMIR) 100 UNITS/ML UNITS SQ SCH (21:47)
[2021-04-17] MEDS: PHENYLEPHRINE HCL/COCOA BUTTER SUPPOSITORY RC SCH (23:42)
[2021-04-18] MEDS: INSULIN SLIDING SCALE (NOVOLOG) 1 VIAL SQ SCH ×4 (06:35→22:03)
[2021-04-18] MEDS ORDERED: EPOETIN ALFA-EPBX 10,000 UNIT/ML VIAL IVPUSH ONE (07:00)
[2021-04-18 07:11] LABS: BASO % 0.4 % (0-2.0); EOS % 3.4 % (0-4.5); HEMATOCRIT 27.2 % (35.4-49); HEMOGLOBIN 9.3 GM/dL (11.7-16.9); LYMPH % 32.5 % (8-40); MCH 34.6 pg (25.7-33.7); MCHC 34.3 g/dl (32.0-35.9); MEAN CELL VOLUME 100.9 fl (80-96); MEAN PLT VOLUME 8.2 fl (7.5-11.1); MONO % 6.7 % (3.8-10.2); PLATELET COUNT 204 10^3/uL (134-434); RBC 2.69 M/mm3 (4.00-5.60); RDW 13.5 % (11.9-15.9); WHITE BLOOD COUNT 4.6 K/mm3 (4.0-10.0)
[2021-04-18 07:32] LABS: BLOOD UREA NITROGEN 46.7 mg/dL (7-18)
[2021-04-18 07:34] LABS: CALCIUM 9.2 mg/dL (8.5-10.1)
[2021-04-18 07:35] LABS: CREATININE 7.3 mg/dL (0.55-1.3); PHOSPHOROUS 4.2 mg/dL (2.5-4.9)
[2021-04-18] MEDS: CALCIUM ACETATE 667 MG CAPSULE (FP) PO SCH ×3 (09:19→17:38)
[2021-04-18] MEDS: NEBIVOLOL 10 MG TABLET (FP) PO SCH ×2 (09:19→12:17)
[2021-04-18] MEDS: TAMSULOSIN HCL 0.4 MG CAP PO SCH ×2 (09:19→12:20)
[2021-04-18] MEDS: POLYETHYLENE GLYCOL (HEALTHYLAX) 3350 17 GM PACKET PO SCH ×3 (09:19→22:02)
[2021-04-18] MEDS: CALCITRIOL 0.25 MCG CAPSULE (FP) PO SCH ×2 (09:20→12:18)
[2021-04-18] MEDS: HEPARIN NA (PORCINE) 5,000 UNITS/ML 1ML VIAL SQ SCH ×3 (09:20→22:02)
[2021-04-18] MEDS: PANTOPRAZOLE 40 MG TABLET PO SCH ×2 (09:20→12:17)
[2021-04-18] MEDS: FINASTERIDE 5 MG TABLET (FP) PO SCH ×2 (09:20→12:17)
[2021-04-18] MEDS ORDERED: SODIUM CHLORIDE 250 ML IV PRN (11:30)
[2021-04-18] MEDS: SODIUM ZIRCONIUM CYCLOSILICATE (LOKELMA) 5 GM PACKET PO SCH (15:56)
[2021-04-18] MEDS ORDERED: PT OWN MED DRAWER 7, Y5N ONE (21:53)
[2021-04-18] MEDS: INSULIN (LEVEMIR) 100 UNITS/ML UNITS SQ SCH (22:02)
[2021-04-18] MEDS: ATORVASTATIN CA 80 MG TABLET (FP) PO SCH (22:03)
[2021-04-18] MEDS: PHENYLEPHRINE HCL/COCOA BUTTER SUPPOSITORY RC SCH (22:29)
[2021-04-18] MEDS: ACETAMINOPHEN 325 MG TABLET (FP) PO PRN (23:46)
[2021-04-19] MEDS: INSULIN SLIDING SCALE (NOVOLOG) 1 VIAL SQ SCH ×4 (06:20→21:26)
[2021-04-19] MEDS: CALCIUM ACETATE 667 MG CAPSULE (FP) PO SCH ×3 (08:30→18:02)
[2021-04-19] MEDS: TAMSULOSIN HCL 0.4 MG CAP PO SCH (08:30)
[2021-04-19] MEDS: HEPARIN NA (PORCINE) 5,000 UNITS/ML 1ML VIAL SQ SCH (09:36)
[2021-04-19] MEDS: PANTOPRAZOLE 40 MG TABLET PO SCH (09:36)
[2021-04-19] MEDS: CALCITRIOL 0.25 MCG CAPSULE (FP) PO SCH (09:36)
[2021-04-19] MEDS: FINASTERIDE 5 MG TABLET (FP) PO SCH (09:36)
[2021-04-19] MEDS: ACETAMINOPHEN 325 MG TABLET (FP) PO PRN (09:36)
[2021-04-19] MEDS: NEBIVOLOL 10 MG TABLET (FP) PO SCH (09:37)
[2021-04-19] MEDS: POLYETHYLENE GLYCOL (HEALTHYLAX) 3350 17 GM PACKET PO SCH ×2 (09:37→21:26)
[2021-04-19] MEDS: APIXABAN 2.5 MG TABLET PO SCH ×2 (15:10→21:27)
[2021-04-19] MEDS: SODIUM ZIRCONIUM CYCLOSILICATE (LOKELMA) 5 GM PACKET PO SCH (18:02)
[2021-04-19] MEDS: ATORVASTATIN CA 80 MG TABLET (FP) PO SCH (21:27)
[2021-04-19] MEDS: INSULIN (LEVEMIR) 100 UNITS/ML UNITS SQ SCH (21:27)
[2021-04-19] MEDS ORDERED: PT OWN MED DRAWER 7, Y5N ONE (21:30)
[2021-04-19] MEDS: PHENYLEPHRINE HCL/COCOA BUTTER SUPPOSITORY RC SCH (23:00)
[2021-04-20] MEDS: INSULIN SLIDING SCALE (NOVOLOG) 1 VIAL SQ SCH ×4 (06:32→21:22)
[2021-04-20] MEDS: CALCIUM ACETATE 667 MG CAPSULE (FP) PO SCH ×3 (08:25→17:34)
[2021-04-20 08:55] LABS: BASO % 0.4 % (0-2.0); EOS % 3.4 % (0-4.5); HEMATOCRIT 27.9 % (35.4-49); HEMOGLOBIN 9.4 GM/dL (11.7-16.9); LYMPH % 29.2 % (8-40); MCH 34.6 pg (25.7-33.7); MCHC 33.7 g/dl (32.0-35.9); MEAN CELL VOLUME 102.6 fl (80-96); MEAN PLT VOLUME 8.3 fl (7.5-11.1); MONO % 6.1 % (3.8-10.2); NEUT % 60.9 % (42.8-82.8); PLATELET COUNT 206 10^3/uL (134-434); RBC 2.72 M/mm3 (4.00-5.60); RDW 13.7 % (11.9-15.9)
[2021-04-20] MEDS: TAMSULOSIN HCL 0.4 MG CAP PO SCH (10:25)
[2021-04-20] MEDS: PANTOPRAZOLE 40 MG TABLET PO SCH (10:25)
[2021-04-20] MEDS: POLYETHYLENE GLYCOL (HEALTHYLAX) 3350 17 GM PACKET PO SCH ×2 (10:25→21:21)
[2021-04-20] MEDS: FINASTERIDE 5 MG TABLET (FP) PO SCH (10:25)
[2021-04-20] MEDS: ACETAMINOPHEN 325 MG TABLET (FP) PO PRN (10:25)
[2021-04-20] MEDS: NEBIVOLOL 10 MG TABLET (FP) PO SCH (10:26)
[2021-04-20] MEDS: CALCITRIOL 0.25 MCG CAPSULE (FP) PO SCH (10:26)
[2021-04-20] MEDS: SODIUM ZIRCONIUM CYCLOSILICATE (LOKELMA) 5 GM PACKET PO SCH (17:34)
[2021-04-20 17:40] LABS: INR 0.98 (0.83-1.09); PROTHROMBIN TIME (PATIENT) 12.1 SEC (9.7-13.0)
[2021-04-20] MEDS: ATORVASTATIN CA 80 MG TABLET (FP) PO SCH (21:21)
[2021-04-20] MEDS: PHENYLEPHRINE HCL/COCOA BUTTER SUPPOSITORY RC SCH (21:22)
[2021-04-20] MEDS: INSULIN (LEVEMIR) 100 UNITS/ML UNITS SQ SCH (22:36)
[2021-04-21] MEDS: INSULIN SLIDING SCALE (NOVOLOG) 1 VIAL SQ SCH ×4 (06:26→21:57)
[2021-04-21] MEDS: CALCIUM ACETATE 667 MG CAPSULE (FP) PO SCH ×3 (07:39→18:30)
[2021-04-21] MEDS: TAMSULOSIN HCL 0.4 MG CAP PO SCH (07:40)
[2021-04-21] MEDS ORDERED: EPOETIN ALFA-EPBX 10,000 UNIT/ML VIAL IVPUSH ONE ×2 (10:00→14:30)
[2021-04-21] MEDS ORDERED: SODIUM CHLORIDE 250 ML IV PRN ×3 (10:16→14:22)
[2021-04-21] MEDS: PANTOPRAZOLE 40 MG TABLET PO SCH (10:24)
[2021-04-21] MEDS: CALCITRIOL 0.25 MCG CAPSULE (FP) PO SCH (10:24)
[2021-04-21] MEDS: NEBIVOLOL 10 MG TABLET (FP) PO SCH (10:24)
[2021-04-21] MEDS: POLYETHYLENE GLYCOL (HEALTHYLAX) 3350 17 GM PACKET PO SCH ×2 (10:24→21:53)
[2021-04-21] MEDS: FINASTERIDE 5 MG TABLET (FP) PO SCH (10:24)
[2021-04-21] MEDS ORDERED: LIDOCAINE HCL 1%, 10 MG/ML (20ML VIAL) ONE (10:54)
[2021-04-21] MEDS ORDERED: GENTAMICIN SO4 80 MG/2 ML VIAL ONE (10:54)
[2021-04-21] MEDS ORDERED: PROPOFOL 20 ML ONE (11:03)
[2021-04-21] MEDS ORDERED: LIDOCAINE HCL 2% JELLY 10 ML CARTRIDGE ONE (11:03)
[2021-04-21] MEDS ORDERED: MIDAZOLAM HCL 2 MG/2 ML SINGLE DOSE VIAL ONE (11:04)
[2021-04-21] MEDS ORDERED: ePHEDrine SULFATE 50 MG/1 ML AMPULE ONE (11:05)
[2021-04-21] MEDS ORDERED: LIDOCAINE HCL 1%, 10 MG/ML (20ML VIAL) NR ONE (11:45)
[2021-04-21] MEDS ORDERED: ceFAZolin SODIUM 1 GM VIAL IVPB ONE (11:45)
[2021-04-21] MEDS ORDERED: BUPIVACAINE HCL/PF 0.5% (5MG/ML) 10 ML VIAL IJ ONE (11:45)
[2021-04-21] MEDS ORDERED: ceFAZolin SODIUM 1 GM VIAL ONE (11:47)
[2021-04-21] MEDS ORDERED: ONDANSETRON 4 MG/2 ML VIAL IVPUSH PRN (12:27)
[2021-04-21] MEDS ORDERED: LACTATED RINGERS SOLUTION 1,000 ML IV SCH (12:30)
[2021-04-21] MEDS ORDERED: DOCUSATE SODIUM 100 MG CAPSULE (FP) PO PRN (12:53)
[2021-04-21 15:29] LABS: HEMOGLOBIN 8.7 GM/dL (11.7-16.9); MCH 33.9 pg (25.7-33.7); MCHC 33.4 g/dl (32.0-35.9); MEAN CELL VOLUME 101.5 fl (80-96); MEAN PLT VOLUME 8.1 fl (7.5-11.1); PLATELET COUNT 181 10^3/uL (134-434); RBC 2.56 M/mm3 (4.00-5.60); RDW 14.2 % (11.9-15.9)
[2021-04-21 15:48] LABS: CHLORIDE 102 mmol/L (98-107); SODIUM 137 mmol/L (136-145)
[2021-04-21 15:51] LABS: CALCIUM 8.9 mg/dL (8.5-10.1)
[2021-04-21 15:52] LABS: BLOOD UREA NITROGEN 65.3 mg/dL (7-18); CO2 25 mmol/L (21-32); GLUCOSE,RANDOM 126 mg/dL (74-106)
[2021-04-21 15:54] LABS: SGPT/ALT 16 U/L (13-61)
[2021-04-21 15:55] LABS: PHOSPHOROUS 3.9 mg/dL (2.5-4.9); SGOT/AST 17 U/L (15-37)
[2021-04-21 15:56] LABS: BILIRUBIN,TOTAL 0.7 mg/dL (0.2-1)
[2021-04-21 15:57] LABS: ALK PHOS 87 U/L (45-117)
[2021-04-21 16:11] LABS: ANION GAP 10 MMOL/L (8-16); CREATININE 9.5 mg/dL (0.55-1.3)
[2021-04-21] MEDS ORDERED: PT OWN MED DRAWER 7, Y5N ONE (18:03)
[2021-04-21] MEDS ORDERED: INSULIN (NOVOLOG) ASPART 100 UNITS/ML 10ML VIAL ONE (18:04)
[2021-04-21] MEDS: SODIUM ZIRCONIUM CYCLOSILICATE (LOKELMA) 5 GM PACKET PO SCH (18:10)
[2021-04-21] MEDS ORDERED: ACETAMINOPHEN 500 MG TABLET (FP) PO PRN (18:23)
[2021-04-21] MEDS ORDERED: ACETAMINOPHEN 325 MG TABLET (FP) PO PRN (18:31)
[2021-04-21] MEDS: ATORVASTATIN CA 80 MG TABLET (FP) PO SCH (21:53)
[2021-04-21] MEDS: oxyCODONE HCL 5 MG TABLET PO PRN (21:53)
[2021-04-21] MEDS: INSULIN (LEVEMIR) 100 UNITS/ML UNITS SQ SCH (21:55)
[2021-04-21] MEDS: PHENYLEPHRINE HCL/COCOA BUTTER SUPPOSITORY RC SCH (21:58)
[2021-04-22] MEDS: INSULIN SLIDING SCALE (NOVOLOG) 1 VIAL SQ SCH ×4 (07:31→21:39)
[2021-04-22] MEDS: oxyCODONE HCL 5 MG TABLET PO PRN (08:28)
[2021-04-22] MEDS: TAMSULOSIN HCL 0.4 MG CAP PO SCH (08:28)
[2021-04-22] MEDS: CALCIUM ACETATE 667 MG CAPSULE (FP) PO SCH ×3 (08:29→17:16)
[2021-04-22] MEDS ORDERED: PT OWN MED DRAWER 7, Y5N ONE (09:21)
[2021-04-22] MEDS: POLYETHYLENE GLYCOL (HEALTHYLAX) 3350 17 GM PACKET PO SCH ×2 (09:45→21:40)
[2021-04-22] MEDS: PANTOPRAZOLE 40 MG TABLET PO SCH (09:45)
[2021-04-22] MEDS: NEBIVOLOL 10 MG TABLET (FP) PO SCH (09:46)
[2021-04-22] MEDS: FINASTERIDE 5 MG TABLET (FP) PO SCH (09:46)
[2021-04-22] MEDS: CALCITRIOL 0.25 MCG CAPSULE (FP) PO SCH (09:46)
[2021-04-22 09:49] LABS: BASO % 0.2 % (0-2.0); EOS % 1.3 % (0-4.5); HEMATOCRIT 28.1 % (35.4-49); HEMOGLOBIN 9.6 GM/dL (11.7-16.9); LYMPH % 14.2 % (8-40); MCH 34.8 pg (25.7-33.7); MCHC 34.3 g/dl (32.0-35.9); MEAN CELL VOLUME 101.5 fl (80-96); MEAN PLT VOLUME 8.4 fl (7.5-11.1); MONO % 5.7 % (3.8-10.2); NEUT % 78.6 % (42.8-82.8); PLATELET COUNT 212 10^3/uL (134-434); RBC 2.77 M/mm3 (4.00-5.60); RDW 14.2 % (11.9-15.9); WHITE BLOOD COUNT 5.4 K/mm3 (4.0-10.0)
[2021-04-22 09:57] LABS: CALCIUM 8.5 mg/dL (8.5-10.1)
[2021-04-22 10:07] LABS: BLOOD UREA NITROGEN 32.2 mg/dL (7-18)
[2021-04-22] MEDS ORDERED: INSULIN (NOVOLOG) ASPART 100 UNITS/ML 10ML VIAL ONE ×2 (12:07→17:34)
[2021-04-22] MEDS: APIXABAN 2.5 MG TABLET PO SCH ×2 (13:44→21:38)
[2021-04-22] MEDS: morphine SULFATE 4 MG/ML VIAL IVPUSH PRN ×2 (13:44→21:38)
[2021-04-22] MEDS: SODIUM ZIRCONIUM CYCLOSILICATE (LOKELMA) 5 GM PACKET PO SCH (16:24)
[2021-04-22 17:17] VITALS: BMI 26.7
[2021-04-22] MEDS: ATORVASTATIN CA 80 MG TABLET (FP) PO SCH (21:38)
[2021-04-22] MEDS: INSULIN (LEVEMIR) 100 UNITS/ML UNITS SQ SCH (21:39)
[2021-04-22] MEDS: PHENYLEPHRINE HCL/COCOA BUTTER SUPPOSITORY RC SCH (21:40)
[2021-04-23] MEDS: INSULIN SLIDING SCALE (NOVOLOG) 1 VIAL SQ SCH ×4 (06:18→21:03)
[2021-04-23] MEDS ORDERED: SODIUM CHLORIDE 250 ML IV PRN (07:27)
[2021-04-23 07:51] LABS: HEMATOCRIT 29.6 % (35.4-49); HEMOGLOBIN 10.1 GM/dL (11.7-16.9); MCH 34.6 pg (25.7-33.7); MCHC 34.1 g/dl (32.0-35.9); MEAN CELL VOLUME 101.4 fl (80-96); PLATELET COUNT 198 10^3/uL (134-434); RBC 2.92 M/mm3 (4.00-5.60); RDW 14.3 % (11.9-15.9); WHITE BLOOD COUNT 6.1 K/mm3 (4.0-10.0)
[2021-04-23] MEDS ORDERED: EPOETIN ALFA-EPBX 10,000 UNIT/ML VIAL IVPUSH ONE (08:00)
[2021-04-23 08:09] LABS: CHLORIDE 102 mmol/L (98-107); SODIUM 141 mmol/L (136-145)
[2021-04-23 08:11] LABS: ANION GAP 7 MMOL/L (8-16); BLOOD UREA NITROGEN 47.6 mg/dL (7-18); CALCIUM 8.7 mg/dL (8.5-10.1); CO2 33 mmol/L (21-32); GLUCOSE,RANDOM 112 mg/dL (74-106)
[2021-04-23 08:15] LABS: PHOSPHOROUS 3.8 mg/dL (2.5-4.9)
[2021-04-23] MEDS: TAMSULOSIN HCL 0.4 MG CAP PO SCH (08:19)
[2021-04-23] MEDS: CALCIUM ACETATE 667 MG CAPSULE (FP) PO SCH ×3 (08:19→17:04)
[2021-04-23 08:37] LABS: CREATININE 7.6 mg/dL (0.55-1.3)
[2021-04-23] MEDS ORDERED: PT OWN MED DRAWER 7, Y5N ONE (09:29)
[2021-04-23] MEDS: NEBIVOLOL 10 MG TABLET (FP) PO SCH (10:11)
[2021-04-23] MEDS: POLYETHYLENE GLYCOL (HEALTHYLAX) 3350 17 GM PACKET PO SCH ×2 (10:11→21:29)
[2021-04-23] MEDS: FINASTERIDE 5 MG TABLET (FP) PO SCH (10:11)
[2021-04-23] MEDS: APIXABAN 2.5 MG TABLET PO SCH ×3 (10:11→21:22)
[2021-04-23] MEDS: CALCITRIOL 0.25 MCG CAPSULE (FP) PO SCH (10:12)
[2021-04-23] MEDS: PANTOPRAZOLE 40 MG TABLET PO SCH (10:12)
[2021-04-23] MEDS ORDERED: INSULIN (NOVOLOG) ASPART 100 UNITS/ML 10ML VIAL ONE ×3 (12:59→17:17)
[2021-04-23] MEDS: morphine SULFATE 4 MG/ML VIAL IVPUSH PRN ×2 (15:17→21:27)
[2021-04-23] MEDS: SODIUM ZIRCONIUM CYCLOSILICATE (LOKELMA) 5 GM PACKET PO SCH (17:03)
[2021-04-23] MEDS: ATORVASTATIN CA 80 MG TABLET (FP) PO SCH (21:22)
[2021-04-23] MEDS: INSULIN (LEVEMIR) 100 UNITS/ML UNITS SQ SCH (21:23)
[2021-04-23] MEDS: PHENYLEPHRINE HCL/COCOA BUTTER SUPPOSITORY RC SCH (21:28)
[2021-04-24] MEDS: INSULIN SLIDING SCALE (NOVOLOG) 1 VIAL SQ SCH ×4 (06:04→21:48)
[2021-04-24] MEDS: CALCITRIOL 0.25 MCG CAPSULE (FP) PO SCH (10:34)
[2021-04-24] MEDS: CALCIUM ACETATE 667 MG CAPSULE (FP) PO SCH ×3 (10:34→18:07)
[2021-04-24] MEDS: TAMSULOSIN HCL 0.4 MG CAP PO SCH (10:34)
[2021-04-24] MEDS: oxyCODONE HCL 5 MG TABLET PO PRN ×2 (10:34→18:08)
[2021-04-24] MEDS: APIXABAN 2.5 MG TABLET PO SCH ×2 (10:35→21:43)
[2021-04-24] MEDS: PANTOPRAZOLE 40 MG TABLET PO SCH (10:35)
[2021-04-24] MEDS: POLYETHYLENE GLYCOL (HEALTHYLAX) 3350 17 GM PACKET PO SCH ×2 (10:36→21:43)
[2021-04-24] MEDS: FINASTERIDE 5 MG TABLET (FP) PO SCH (10:36)
[2021-04-24] MEDS: NEBIVOLOL 10 MG TABLET (FP) PO SCH (10:37)
[2021-04-24] MEDS ORDERED: INSULIN (NOVOLOG) ASPART 100 UNITS/ML 10ML VIAL ONE (11:58)
[2021-04-24] MEDS ORDERED: SODIUM CHLORIDE 250 ML IV PRN (14:58)
[2021-04-24] MEDS: SODIUM ZIRCONIUM CYCLOSILICATE (LOKELMA) 5 GM PACKET PO SCH (18:07)
[2021-04-24] MEDS: ATORVASTATIN CA 80 MG TABLET (FP) PO SCH (21:43)
[2021-04-24] MEDS: morphine SULFATE 4 MG/ML VIAL IVPUSH PRN (21:44)
[2021-04-24] MEDS: INSULIN (LEVEMIR) 100 UNITS/ML UNITS SQ SCH (21:49)
[2021-04-24] MEDS: PHENYLEPHRINE HCL/COCOA BUTTER SUPPOSITORY RC SCH (21:50)
[2021-04-25] MEDS: INSULIN SLIDING SCALE (NOVOLOG) 1 VIAL SQ SCH ×4 (06:40→21:22)
[2021-04-25] MEDS ORDERED: INSULIN (NOVOLOG) ASPART 100 UNITS/ML 10ML VIAL ONE (06:44)
[2021-04-25] MEDS ORDERED: INSULIN (LEVEMIR) 100 UNITS/ML UNITS SQ ONE (06:44)
[2021-04-25 08:35] LABS: BASO % 0.2 % (0-2.0); EOS % 2.7 % (0-4.5); HEMATOCRIT 25.7 % (35.4-49); HEMOGLOBIN 8.8 GM/dL (11.7-16.9); LYMPH % 17.2 % (8-40); MCH 34.7 pg (25.7-33.7); MCHC 34.2 g/dl (32.0-35.9); MEAN CELL VOLUME 101.4 fl (80-96); MEAN PLT VOLUME 8.2 fl (7.5-11.1); MONO % 7.6 % (3.8-10.2); NEUT % 72.3 % (42.8-82.8); PLATELET COUNT 199 10^3/uL (134-434); RBC 2.53 M/mm3 (4.00-5.60); RDW 14.3 % (11.9-15.9); WHITE BLOOD COUNT 5.9 K/mm3 (4.0-10.0)
[2021-04-25] MEDS: CALCIUM ACETATE 667 MG CAPSULE (FP) PO SCH ×3 (08:54→17:24)
[2021-04-25] MEDS: TAMSULOSIN HCL 0.4 MG CAP PO SCH (08:54)
[2021-04-25] MEDS: FINASTERIDE 5 MG TABLET (FP) PO SCH (09:12)
[2021-04-25] MEDS: PANTOPRAZOLE 40 MG TABLET PO SCH (09:12)
[2021-04-25] MEDS: APIXABAN 2.5 MG TABLET PO SCH ×2 (09:12→21:22)
[2021-04-25] MEDS: POLYETHYLENE GLYCOL (HEALTHYLAX) 3350 17 GM PACKET PO SCH ×2 (09:12→21:22)
[2021-04-25] MEDS: CALCITRIOL 0.25 MCG CAPSULE (FP) PO SCH (09:12)
[2021-04-25] MEDS ORDERED: EPOETIN ALFA-EPBX 10,000 UNIT/ML VIAL IVPUSH ONE (10:15)
[2021-04-25] MEDS: NEBIVOLOL 10 MG TABLET (FP) PO SCH (10:43)
[2021-04-25 11:14] LABS: ALBUMIN 2.9 g/dl (3.4-5.0); BLOOD UREA NITROGEN 49.6 mg/dL (7-18); CALCIUM 8.9 mg/dL (8.5-10.1)
[2021-04-25 11:17] LABS: PHOSPHOROUS 4.2 mg/dL (2.5-4.9)
[2021-04-25 11:19] LABS: BILIRUBIN,TOTAL 0.8 mg/dL (0.2-1); TOT PROT 6.1 g/dl (6.4-8.2)
[2021-04-25 11:21] LABS: CREATININE 7.4 mg/dL (0.55-1.3)
[2021-04-25] MEDS ORDERED: VANCOMYCIN 1 GM in D5W (PRE-DOCKED) 1,000 MG/250 ML IVPB ONE (13:30)
[2021-04-25] MEDS: oxyCODONE HCL 5 MG TABLET PO PRN (15:43)
[2021-04-25] MEDS: ATORVASTATIN CA 80 MG TABLET (FP) PO SCH (21:21)
[2021-04-25] MEDS: PHENYLEPHRINE HCL/COCOA BUTTER SUPPOSITORY RC SCH (21:22)
[2021-04-25] MEDS: INSULIN (LEVEMIR) 100 UNITS/ML UNITS SQ SCH (21:22)
[2021-04-26] MEDS: oxyCODONE HCL 5 MG TABLET PO PRN (05:30)
[2021-04-26] MEDS: INSULIN SLIDING SCALE (NOVOLOG) 1 VIAL SQ SCH (06:00)
[2021-04-26 07:16] VITALS: BP 160/76; PULSE 86; TEMP 98.7
[2021-04-26] MEDS: CALCIUM ACETATE 667 MG CAPSULE (FP) PO SCH (08:14)
[2021-04-26] MEDS: TAMSULOSIN HCL 0.4 MG CAP PO SCH (08:14)
[2021-04-26] MEDS ORDERED: PT OWN MED DRAWER 7, Y5N ONE (09:18)
[2021-04-26] MEDS: APIXABAN 2.5 MG TABLET PO SCH (09:24)
[2021-04-26] MEDS: FINASTERIDE 5 MG TABLET (FP) PO SCH (09:24)
[2021-04-26] MEDS: CALCITRIOL 0.25 MCG CAPSULE (FP) PO SCH (09:24)
[2021-04-26] MEDS: PANTOPRAZOLE 40 MG TABLET PO SCH (09:24)
[2021-04-26] MEDS: POLYETHYLENE GLYCOL (HEALTHYLAX) 3350 17 GM PACKET PO SCH (09:25)
[2021-04-26] MEDS: NEBIVOLOL 10 MG TABLET (FP) PO SCH (09:25)
== END 2021-04-26 11:05 | disposition home or self-care (01) | DRG 617 ==
LOC: JER 08:33 → JERBED 09:16 → J4S 18:10 → J5S 04-19 13:34 → J8W 04-21 16:15
PROVIDERS: ADMIT Internal Medicine; ATTEND Internal Medicine
PROC: 0HXNXZZ Transfer Left Foot Skin, External Approach (ICD-10-PCS; 2021-04-21)
PROC: 0Y6Q0Z1 Detachment at Left 1st Toe, High, Open Approach (ICD-10-PCS; principal; 2021-04-21 10:30)
PROC: 5A1D70Z Performance of Urinary Filtration, Intermittent, Less than 6 Hours Per Day (ICD-10-PCS; 2021-04-25)
DX: E11.69 Type 2 diabetes mellitus with other specified complication (principal); M86.9 Osteomyelitis, unspecified; E11.52 Type 2 diabetes mellitus with diabetic peripheral angiopathy with gangrene; I96 Gangrene, not elsewhere classified; D62 Acute posthemorrhagic anemia; I12.0 Hypertensive chronic kidney disease with stage 5 chronic kidney disease or end stage renal disease; N18.6 End stage renal disease; L97.509 Non-pressure chronic ulcer of other part of unspecified foot with unspecified severity; E11.621 Type 2 diabetes mellitus with foot ulcer; E87.5 Hyperkalemia; E11.22 Type 2 diabetes mellitus with diabetic chronic kidney disease; E78.5 Hyperlipidemia, unspecified; D63.1 Anemia in chronic kidney disease; N25.0 Renal osteodystrophy; E83.39 Other disorders of phosphorus metabolism; Z99.2 Dependence on renal dialysis; K21.9 Gastro-esophageal reflux disease without esophagitis
CPT/HCPCS: 36415; 71046-TC-FY; 73630-TC-LT; 73630-TC-RT-FY; 80048; 80053; 81003; 82607; 82746; 82962; 83735; 84100; 85025; 85027; 85610; 85730; 86803; 86850; 86900; 86901; 87040; 87070; 87075; 87186; 87205; 87340; 88305-TC; 88311-TC; 93005; 93010; 94760; 99285-25; C9803; J1644; Q5106; U0003; U0005